=== PATIENT | male | born 1930 | race Caucasian/White ===

== ENCOUNTER 2016-07-25 17:04 | Inpatient (IN) ==
--- NOTE | 2016-07-25 17:51 | Emergency Department Note ---
Disposition Clinical Impression: Bronchitis, Community acquired pneumonia Dyspnea Qualifiers: Dyspnea type: dyspnea on exertion Qualified Code(s): R06.09 - Other forms of dyspnea Disposition: Admitted As Inpatient Condition: Fair Time of Disposition: 19:00 SOB HPI - General Chief Complaint: ED General Medical Stated Complaint: URMILA, weakness Time Seen by Provider: 07/25/16 17:37 Source: patient Limitations: no limitations Nursing Notes Reviewed: Yes Vital Signs Reviewed: Yes - History of Present Illness Patient is an 85-year-old male who presents to [facility] ED with a chief complaint of worsening shortness of breath since 07/15/2016. Patient states it has been gradually getting worse with exertion over the last few days. Past medical history significant for non-small cell lung cancer for which he has had radiation, COPD. Denies any cardiac history. Patient states he has had a productive cough and congestion worsening since . Family states he also had an episode where he was dizzy sitting on the toilet and had a syncopal episode earlier today. Pt Subjective Complaint: shortness of breath - Related Data Home Medications Medication Instructions Recorded Confirmed Aspirin 81 mg PO DAILY 04/04/15 07/25/16 Losartan [Cozaar] 50 mg PO DAILY 04/04/15 07/25/16 Metformin HCl [Glucophage Xr] 500 mg PO TID 04/04/15 07/25/16 Simvastatin [Zocor] 20 mg PO HS 04/04/15 07/25/16 Allergies Allergy/AdvReac Type Severity Reaction Status Date / Time atorvastatin [From Lipitor] Allergy Severe Shakiness Verified 07/25/16 22:25 All systems ED: reviewed and negative except as stated. Past Medical History - Past Medical History Attestation: Yes The following information was validated with the patient. Source: patient Medical history: Reports: diabetes, hyperlipidemia Psychiatric history: Reports: no psych history - Social History Smoking Status: Former smoker Smokeless Tobacco Status: No Alcohol use: Reports: none Drug use: Reports: none Physical Exam - General Limitations: no limitations General appearance: alert, in no apparent distress, cachectic - Head Head exam: atraumatic, normocephalic, normal inspection - Eye Eye exam: Present: normal appearance, PERRL, EOMI - ENT ENT exam: normal exam, normal oropharynx, mucous membranes moist - Neck Neck exam: Present: normal inspection, full ROM, trachea midline - Chest Chest inspection: Present: normal inspection, symmetric chest wall rise - Respiratory Respiratory exam: Present: normal lung sounds bilaterally - Cardiovascular Cardiovascular exam: Present: normal rhythm, tachycardia - Abdominal Exam Abdominal exam: Present: soft, Non-Tender. Absent: tenderness, distention, guarding, rebound, rigidity - Extremities Exam Extremities exam: Present: normal inspection, full ROM. Absent: tenderness, pedal edema - Back Exam Back exam: Present: normal inspection, full ROM. Absent: tenderness - Neurological Exam Neurological exam: Present: alert, oriented X3 - Psychiatric Psychiatric exam: Present: normal affect, normal mood - Skin Skin exam: Present: warm, dry, intact, normal color Course Course Narrative: Patient seen and examined. Difficulty breathing worsening since [place]. Patient has a pacemaker in place otherwise no other cardiac history. cardiopulmonary workup initiated. He has clear breath sounds bilaterally. Concern for possible pulmonary embolus as patient is tachycardic and had a syncopal episode today. CTA of the chest also ordered. - Reevaluation(s) Reevaluation #1: Patient signed out to oncoming resident Dr. Abarca at 19:00. Please see his note for further documentation. Time: 19:00 Vital Signs Temperature 97.6 F 07/25/16 17:13 Pulse Rate 102 07/25/16 17:13 Respiratory Rate 20 07/25/16 17:13 Blood Pressure 98/57 07/25/16 17:13 O2 Sat by Pulse Oximetry 95 07/25/16 17:13 Temperature 97.7 F 07/27/16 15:57 Pulse Rate 105 07/27/16 15:57 Respiratory Rate 18 07/27/16 16:03 Blood Pressure 127/63 07/27/16 16:03 O2 Sat by Pulse Oximetry 97 07/27/16 16:03 Oxygen Delivery Oxygen Delivery Room Air Shortness of Breath/Dyspnea - Medical Records Medical records reviewed: Yes I reviewed the patient's medical records. - Lab Data Lab results reviewed: Yes I reviewed the patient's lab results. Result diagrams: 07/27/16 05:48 07/27/16 05:48 Lab Results 07/25/16 07/25/16 07/25/16 Range/Units 18:10 18:10 18:10 WBC 27.9 H (4.3-11.1) K/mcL RBC 4.51 (4.19-5.50) M/mcL Hgb 12.8 L (12.9-16.9) g/dL Hct 37.7 (37.5-50.1) % MCV 83.6 (83.0-100.0) fL MCH 28.4 (28.0-33.3) pg MCHC 34.0 (31.6-35.5) g/dL RDW 13.9 (11.5-14.5) % Plt Count 429 H (140-400) K/mcL MPV 9.2 L (9.4-12.4) fL Immature Gran % 1.3 (0-4) % Seg Neutrophils % 89.9 % Lymphocytes % 3.1 % Monocytes % 5.5 % Eosinophils % 0.0 % Basophils % 0.2 % Neutrophils # 25.1 H (1.6-8.9) K/mcL Lymphocytes # 0.9 (0.6-4.6) K/mcL Monocytes # 1.5 H (0.0-1.3) K/mcL Eosinophils # 0.0 (0.0-0.6) K/mcL Basophils # 0.1 (0.0-0.2) K/mcL Platelet Estimate Normal (Normal) PT (9.4-12.1) Seconds INR APTT (26.0-36.0) Seconds Sodium 136 (136-145) mEq/L Potassium 4.3 (3.5-4.5) mEq/L Chloride 100 (98-109) mEq/L Carbon Dioxide 24 (19-29) mEq/L BUN 16 (8-26) mg/dL Creatinine 1.23 (0.72-1.25) mg/dL Est GFR ( Amer) > 60 (> 60) Est GFR (Non-Af Amer) 56 L (> 60) BUN/Creatinine Ratio 13 (6-26) Glucose 205 H (70-99) mg/dL Calculated Osmolality 289 (280-300) Lactic Acid (0.5-2.2) mmol/L Calcium 9.8 (8.6-10.8) mg/dL Phosphorus (2.3-4.7) mg/dL Magnesium (1.6-2.6) mg/dL Troponin I 0.01 (0-0.03) ng/mL B-Natriuretic Peptide (0-100) pg/mL Urine Color (Yellow) Urine Clarity (Clear) Urine pH (5.0-8.0) pH Units Ur Specific [place] (1.010-1.025) Urine Protein (Neg-Trace) mg/dL Urine Glucose (UA) (Normal) mg/dL Urine Ketones (Negative) mg/dL Urine Blood (Negative) Urine Nitrite (Negative) Urine Bilirubin (Negative) Urine Urobilinogen (Normal) mg/dL Ur Leukocyte Esterase (Negative) Urine Microscopic RBC (0-3) per hpf Urine Microscopic WBC (0-3) per hpf Ur Squamous Epith Cells (None-Few) per lpf Urine Bacteria (None-Few) per hpf Hyaline Casts (None-Few) per lpf Ur Culture Indicated? (NO) 07/25/16 07/25/16 07/25/16 Range/Units 18:10 20:23 22:06 WBC (4.3-11.1) K/mcL RBC (4.19-5.50) M/mcL Hgb (12.9-16.9) g/dL Hct (37.5-50.1) % MCV (83.0-100.0) fL MCH (28.0-33.3) pg MCHC (31.6-35.5) g/dL RDW (11.5-14.5) % Plt Count (140-400) K/mcL MPV (9.4-12.4) fL Immature Gran % (0-4) % Seg Neutrophils % % Lymphocytes % % Monocytes % % Eosinophils % % Basophils % % Neutrophils # (1.6-8.9) K/mcL Lymphocytes # (0.6-4.6) K/mcL Monocytes # (0.0-1.3) K/mcL Eosinophils # (0.0-0.6) K/mcL Basophils # (0.0-0.2) K/mcL Platelet Estimate (Normal) PT 13.3 H (9.4-12.1) Seconds INR 1.2 APTT 30.2 (26.0-36.0) Seconds Sodium (136-145) mEq/L Potassium (3.5-4.5) mEq/L Chloride (98-109) mEq/L Carbon Dioxide (19-29) mEq/L BUN (8-26) mg/dL Creatinine (0.72-1.25) mg/dL Est GFR ( Amer) (> 60) Est GFR (Non-Af Amer) (> 60) BUN/Creatinine Ratio (6-26) Glucose (70-99) mg/dL Calculated Osmolality (280-300) Lactic Acid (0.5-2.2) mmol/L Calcium (8.6-10.8) mg/dL Phosphorus (2.3-4.7) mg/dL Magnesium (1.6-2.6) mg/dL Troponin I (0-0.03) ng/mL B-Natriuretic Peptide 158 H (0-100) pg/mL Urine Color Yellow (Yellow) Urine Clarity Clear (Clear) Urine pH 7.5 (5.0-8.0) pH Units Ur Specific [place] 1.028 H (1.010-1.025) Urine Protein 30 H (Neg-Trace) mg/dL Urine Glucose (UA) Normal (Normal) mg/dL Urine Ketones 40 H (Negative) mg/dL Urine Blood Negative (Negative) Urine Nitrite Negative (Negative) Urine Bilirubin Small H (Negative) Urine Urobilinogen Normal (Normal) mg/dL Ur Leukocyte Esterase Trace H (Negative) Urine Microscopic RBC 3-5 H (0-3) per hpf Urine Microscopic WBC 5-15 H (0-3) per hpf Ur Squamous Epith Cells Many H (None-Few) per lpf Urine Bacteria None Seen (None-Few) per hpf Hyaline Casts None Seen (None-Few) per lpf Ur Culture Indicated? YES A (NO) 07/25/16 07/25/16 Range/Units 22:06 22:06 WBC (4.3-11.1) K/mcL RBC (4.19-5.50) M/mcL Hgb (12.9-16.9) g/dL Hct (37.5-50.1) % MCV (83.0-100.0) fL MCH (28.0-33.3) pg MCHC (31.6-35.5) g/dL RDW (11.5-14.5) % Plt Count (140-400) K/mcL MPV (9.4-12.4) fL Immature Gran % (0-4) % Seg Neutrophils % % Lymphocytes % % Monocytes % % Eosinophils % % Basophils % % Neutrophils # (1.6-8.9) K/mcL Lymphocytes # (0.6-4.6) K/mcL Monocytes # (0.0-1.3) K/mcL Eosinophils # (0.0-0.6) K/mcL Basophils # (0.0-0.2) K/mcL Platelet Estimate (Normal) PT (9.4-12.1) Seconds INR APTT (26.0-36.0) Seconds Sodium (136-145) mEq/L Potassium (3.5-4.5) mEq/L Chloride (98-109) mEq/L Carbon Dioxide (19-29) mEq/L BUN (8-26) mg/dL Creatinine (0.72-1.25) mg/dL Est GFR ( Amer) (> 60) Est GFR (Non-Af Amer) (> 60) BUN/Creatinine Ratio (6-26) Glucose (70-99) mg/dL Calculated Osmolality (280-300) Lactic Acid 1.8 (0.5-2.2) mmol/L Calcium (8.6-10.8) mg/dL Phosphorus 3.0 (2.3-4.7) mg/dL Magnesium 1.5 L (1.6-2.6) mg/dL Troponin I (0-0.03) ng/mL B-Natriuretic Peptide (0-100) pg/mL Urine Color (Yellow) Urine Clarity (Clear) Urine pH (5.0-8.0) pH Units Ur Specific [place] (1.010-1.025) Urine Protein (Neg-Trace) mg/dL Urine Glucose (UA) (Normal) mg/dL Urine Ketones (Negative) mg/dL Urine Blood (Negative) Urine Nitrite (Negative) Urine Bilirubin (Negative) Urine Urobilinogen (Normal) mg/dL Ur Leukocyte Esterase (Negative) Urine Microscopic RBC (0-3) per hpf Urine Microscopic WBC (0-3) per hpf Ur Squamous Epith Cells (None-Few) per lpf Urine Bacteria (None-Few) per hpf Hyaline Casts (None-Few) per lpf Ur Culture Indicated? (NO) - Radiology Data Radiology results reviewed: Yes I reviewed the patient's radiology results. - EKG Data EKG attestation: Yes I reviewed and interpreted this EKG. EKG results narrative: EKG done at 1804 shows atrial and ventricular paced rhythm with a rate of [address] elevation or depression noted. Attestation Statement - Attestation Attestation: I examined this patient and my medical decision-making was reviewed with the Resident Physician. I agree with the documented findings, disposition and treatment plan as described. Pt checked out to Dr. Solomon at change of shift.
[2016-07-25 18:19] LABS: Basophils # 0.1 K/mcL (0.0-0.2); Basophils % 0.2 %; Hematocrit 37.7 % (37.5-50.1); Hemoglobin 12.8 g/dL (12.9-16.9); Immature Granulocytes % 1.3 % (0-4); Lymphocytes # 0.9 K/mcL (0.6-4.6); Lymphocytes % 3.1 %; Mean Corpuscular Hemoglobin 28.4 pg (28.0-33.3); Mean Corpuscular Volume 83.6 fL (83.0-100.0); Mean Platelet Volume 9.2 fL (9.4-12.4); Monocytes # 1.5 K/mcL (0.0-1.3); Monocytes % 5.5 %; Neutrophils # 25.1 K/mcL (1.6-8.9); Platelet Count 429 K/mcL (140-400); Red Blood Count 4.51 M/mcL (4.19-5.50); Red Cell Distribution Width 13.9 % (11.5-14.5); Segmented Neutrophils % 89.9 %
[2016-07-25 18:29] LABS: BUN/Creatinine Ratio 13 (6-26); Blood Urea Nitrogen 16 mg/dL (8-26); Calcium 9.8 mg/dL (8.6-10.8); Carbon Dioxide 24 mEq/L (19-29); Chloride 100 mEq/L (98-109); Glucose 205 mg/dL (70-99); Osmolality,Calculated 289 (280-300); Potassium 4.3 mEq/L (3.5-4.5); Sodium 136 mEq/L (136-145); eGFR For African Americans > 60 (> 60); eGFR For Non-African Americans 56 (> 60)
[2016-07-25 18:38] LABS: Platelet Estimate Normal (Normal)
[2016-07-25] MEDS ORDERED: Azithromycin 500 MG in D5% in Water 250 ML IVPB ONE (21:36)
[2016-07-25] MEDS ORDERED: 0.9 % Sodium Chloride 1,000 ML IVC SCH (21:45)
--- NOTE | 2016-07-25 21:50 | Emergency Department Note ---
Disposition Clinical Impression: Bronchitis, Community acquired pneumonia Dyspnea Qualifiers: Dyspnea type: dyspnea on exertion Qualified Code(s): R06.09 - Other forms of dyspnea Disposition: Admitted As Inpatient Condition: Fair Forms: ED Satisfaction Letter SOB HPI - General Chief Complaint: ED General Medical Stated Complaint: URMILA, weakness Time Seen by Provider: 07/25/16 17:37 Source: patient Limitations: no limitations Nursing Notes Reviewed: Yes Vital Signs Reviewed: Yes - Related Data Home Medications Medication Instructions Recorded Confirmed Aspirin 81 mg PO DAILY 04/04/15 07/05/16 Losartan [Cozaar] 50 mg PO DAILY 04/04/15 07/05/16 Metformin HCl [Glucophage Xr] 500 mg PO TID 04/04/15 07/05/16 Simvastatin [Zocor] 20 mg PO HS 04/04/15 07/05/16 Previous Rx's Medication Instructions Recorded Levofloxacin [Levaquin] 750 mg PO DAILY #7 tablet 07/05/16 Allergies Allergy/AdvReac Type Severity Reaction Status Date / Time atorvastatin [From Lipitor] Allergy Severe Wheezing Verified 07/05/16 11:08 Past Medical History - Past Medical History Medical history: Reports: diabetes, hyperlipidemia Psychiatric history: Reports: no psych history - Social History Smoking Status: Former smoker Smokeless Tobacco Status: No Alcohol use: Reports: none Drug use: Reports: none Physical Exam - General Limitations: no limitations General appearance: alert, in no apparent distress, cachectic Course Course Narrative: This patient was signed out at shift change from Dr. Diaz and Dr. Jordan. Please refer to their notes for complete details of history and physical examination. At shift change patient is awaiting results of the CTA of the chest. Patient is an 85-year-old male with a remote history of lung cancer treated with radiation over a year ago. He presents with a complaint of some increasing shortness of breath and cough over the past few weeks. No fever. Some mild intermittent pleuritic chest pain. On examination patient is a cachectic elderly male in no acute distress. He is alert and oriented 3. There is no cyanosis or diaphoresis. Sounds are decreased but equal bilaterally. Heart regular rate and rhythm. Abdomen soft and nontender with normal bowel sounds. No pedal edema. Labs reviewed. WBC [address] of the chest showed no findings of pulmonary embolism. There was some patchy bronchial wall thickening in the lower lobes with bronchial secretions, especially on the left, suggesting bronchitis. There were new nodular opacities in the lower lobes likely infectious or inflammatory. The right upper lobe suprahilar mass was unchanged from prior study. The hospitalist, Dr. Aguayo, was consulted and accepted admission of the patient. She was concerned about possible sepsis in this patient so additional sepsis workup was added prior to admission. - Consultations Consultation #1: Discussed the patient with the hospitalist, Dr. Aguayo, and she accepted patient for admission to the medical service. Time: 21:40 Vital Signs Temperature 97.6 F 07/25/16 17:13 Pulse Rate 102 07/25/16 17:13 Respiratory Rate 20 07/25/16 17:13 Blood Pressure 98/57 07/25/16 17:13 O2 Sat by Pulse Oximetry 95 07/25/16 17:13 Temperature 97.6 F 07/25/16 17:13 Pulse Rate 93 07/25/16 20:36 Respiratory Rate 16 07/25/16 20:36 Blood Pressure 148/70 07/25/16 20:36 O2 Sat by Pulse Oximetry 95 07/25/16 20:37 Oxygen Delivery Oxygen Delivery Nasal Cannula Shortness of Breath/Dyspnea - Medical Records Medical records reviewed: Yes I reviewed the patient's medical records. - Lab Data Lab results reviewed: Yes I reviewed the patient's lab results. Result diagrams: 07/25/16 18:10 07/25/16 18:10 Lab Results 07/25/16 07/25/16 07/25/16 Range/Units 18:10 18:10 18:10 WBC 27.9 H (4.3-11.1) K/mcL RBC 4.51 (4.19-5.50) M/mcL Hgb 12.8 L (12.9-16.9) g/dL Hct 37.7 (37.5-50.1) % MCV 83.6 (83.0-100.0) fL MCH 28.4 (28.0-33.3) pg MCHC 34.0 (31.6-35.5) g/dL RDW 13.9 (11.5-14.5) % Plt Count 429 H (140-400) K/mcL MPV 9.2 L (9.4-12.4) fL Immature Gran % 1.3 (0-4) % Seg Neutrophils % 89.9 % Lymphocytes % 3.1 % Monocytes % 5.5 % Eosinophils % 0.0 % Basophils % 0.2 % Neutrophils # 25.1 H (1.6-8.9) K/mcL Lymphocytes # 0.9 (0.6-4.6) K/mcL Monocytes # 1.5 H (0.0-1.3) K/mcL Eosinophils # 0.0 (0.0-0.6) K/mcL Basophils # 0.1 (0.0-0.2) K/mcL Platelet Estimate Normal (Normal) Sodium 136 (136-145) mEq/L Potassium 4.3 (3.5-4.5) mEq/L Chloride 100 (98-109) mEq/L Carbon Dioxide 24 (19-29) mEq/L BUN 16 (8-26) mg/dL Creatinine 1.23 (0.72-1.25) mg/dL Est GFR ( Amer) > 60 (> 60) Est GFR (Non-Af Amer) 56 L (> 60) BUN/Creatinine Ratio 13 (6-26) Glucose 205 H (70-99) mg/dL Calculated Osmolality 289 (280-300) Calcium 9.8 (8.6-10.8) mg/dL Troponin I 0.01 (0-0.03) ng/mL B-Natriuretic Peptide (0-100) pg/mL 07/25/16 Range/Units 18:10 WBC (4.3-11.1) K/mcL RBC (4.19-5.50) M/mcL Hgb (12.9-16.9) g/dL Hct (37.5-50.1) % MCV (83.0-100.0) fL MCH (28.0-33.3) pg MCHC (31.6-35.5) g/dL RDW (11.5-14.5) % Plt Count (140-400) K/mcL MPV (9.4-12.4) fL Immature Gran % (0-4) % Seg Neutrophils % % Lymphocytes % % Monocytes % % Eosinophils % % Basophils % % Neutrophils # (1.6-8.9) K/mcL Lymphocytes # (0.6-4.6) K/mcL Monocytes # (0.0-1.3) K/mcL Eosinophils # (0.0-0.6) K/mcL Basophils # (0.0-0.2) K/mcL Platelet Estimate (Normal) Sodium (136-145) mEq/L Potassium (3.5-4.5) mEq/L Chloride (98-109) mEq/L Carbon Dioxide (19-29) mEq/L BUN (8-26) mg/dL Creatinine (0.72-1.25) mg/dL Est GFR ( Amer) (> 60) Est GFR (Non-Af Amer) (> 60) BUN/Creatinine Ratio (6-26) Glucose (70-99) mg/dL Calculated Osmolality (280-300) Calcium (8.6-10.8) mg/dL Troponin I (0-0.03) ng/mL B-Natriuretic Peptide 158 H (0-100) pg/mL - Radiology Data Radiology results reviewed: Yes I reviewed the patient's radiology results. Chest X-Ray 07/25/16 17:49 IMPRESSION: 1. No acute cardiopulmonary process. 2. Unchanged suprahilar right upper lobe mass. D/ / Venkat Lr MD / Venkat Lr MD Interpreting Provider: Venkat Lr MD Chest CTA 07/25/16 18:04 IMPRESSION: 1. No findings of pulmonary embolism. 2. Patchy minimal to mild bronchial wall thickening in the lower lobes with associated bronchial secretions especially on the left, suggesting bronchitis. 3. New nodular opacities in the lower lobes as above, likely infectious or inflammatory given the interval between studies. Recommend attention on follow-up imaging. 4. Decreased size and solid component of previously seen prior nodules in the right middle lobe, suggesting a resolving infectious and/or inflammatory process. 5. Unchanged suprahilar right upper lobe mass and other bilateral nodules as described on the prior study. 6. Mild centrilobular and minimal paraseptal emphysema. 7. Normal heart size with mild coronary atherosclerotic calcifications and mild right ventricular hypertrophy. D/ / Venkat Lr MD / Venkat Lr MD Interpreting Provider: Venkat Lr MD
[2016-07-25 22:16] LABS: Bilirubin,Urine Small (Negative); Blood,Urine Negative (Negative); Clarity,Urine Clear (Clear); Color,Urine Yellow (Yellow); Glucose,Urine (UA) Normal (Normal); Ketones,Urine 40 mg/dL (Negative); Leukocyte Esterase,Urine Trace (Negative); Nitrite,Urine Negative (Negative); PH,Urine 7.5 pH Units (5.0-8.0); Protein,Urine 30 mg/dL (Neg-Trace); Specific Gravity,Urine 1.028 (1.010-1.025); Urobilinogen,Urine Normal (Normal)
[2016-07-25 22:18] LABS: Bacteria,Urine None Seen per hpf (None-Few); Hyaline Casts,Urine None Seen per lpf (None-Few); Squamous Epithelial Cell,Urine Many per lpf (None-Few)
[2016-07-25] MEDS ORDERED: Ipratropium/Albuterol Neb 3 ML IH PRN (22:18)
[2016-07-25] MEDS ORDERED: *HR* Morphine 2 MG/ML SYRINGE IV PRN (22:18)
[2016-07-25 22:23] LABS: INR 1.2; Prothrombin Time 13.3 Seconds (9.4-12.1)
[2016-07-25 22:25] LABS: Activated Partial Thrombo Time 30.2 Seconds (26.0-36.0)
[2016-07-25] MEDS ORDERED: D5% in Water 1,000 ML IV PRN (22:25)
[2016-07-25] MEDS ORDERED: Naloxone 0.4 MG/ML INJ IVP PRN (22:25)
[2016-07-25] MEDS ORDERED: Acetaminophen 325 MG TABLET PO PRN (22:25)
[2016-07-25] MEDS ORDERED: Ondansetron 4 MG/2 ML VIAL IVP PRN (22:25)
[2016-07-25] MEDS ORDERED: *HR* Dextrose 50 % in Water (Syg) 50 ML SYRINGE IVP PRN (22:25)
[2016-07-25] MEDS ORDERED: Dextrose Gel 15 GM PO PRN ×2 (22:25)
[2016-07-25 22:29] LABS: Magnesium 1.5 mg/dL (1.6-2.6)
--- NOTE | 2016-07-25 22:36 | Internal Med History&Physical ---
Date of Encounter: 07/25/16 Time of Encounter: 22:30 Assessment and Plan (1) Sepsis Current visit: Yes Status: Acute Acute mild COPD exacerbation due to Sepsis secondary to acute bacterial bronchitis/community-acquired pneumonia Continue Rocephin and azithromycin Continue oxygen, DuoNeb nebs and Solu-Medrol Blood cultures Check a respiratory viral panel Check a lactic acid Qualifiers: Sepsis type: sepsis due to unspecified organism Qualified Code(s): A41.9 - Sepsis, unspecified organism (2) Diabetes Current visit: Yes Status: Acute Use insulin sliding scale and continue metformin Qualifiers: Diabetes mellitus type: type 2 Diabetes mellitus complication status: without complication 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 The patient will be admitted as inpatient, he is expected to stay more than 2 maintenance. He is a DNR CC arrest DNI, time spent on this admission 40 minutes. He is high risk due to sepsis Internal Medicine - H&P: HPI Chief complaint: Shortness of breath Admitted From: Emergency Dept Plans for Post Hospital Care: Home History of present illness: Mr. Corado is a 85 year old male with past medical history of COPD not oxygen dependent, remote history of tobacco use. Comes emergency room complaining of worsening shortness of breath has been getting worse since July 15. He did not complain of being congested and having cough with yellowish phlegm. His family members said that he sleeps alone but most of them visiting him constantly and all of them had had a respiratory infection within the last few days. He denies any fever, but his white blood cell count is 27.9 he was tachycardic with a heart rate 102 and hypotensive with a blood pressure of 98/ 57. CT angios the chest was performed and did not show any pulmonary emboli but showed possible bronchitis in a few opacities in both lower lobes that could be from an infectious origin. There is a right upper lobe mass that has been stable/unchanged from the prior imaging studies. The patient was given Rocephin and azithromycin at the emergency room. He also had a syncopal episode as he was very weak earlier today while being on the toilet. He was feeling dizzy at that time and appears very dehydrated at the moment. Past Med Surg Social Fam HX - Past Medical History Medical history: COPD (Not oxygen dependent), diabetes (Not insulin-dependent), hyperlipidemia, hypertension, other (Non-small cell carcinoma status post radiation in 2014, gastric ulcers status post surgery.) Psychiatric history: no psych history - Past Surgical History Surgical History: cholecystectomy, other (Pacemaker, gastric ulcer surgery, cholecystectomy) - Social History Smoking Status: Former smoker (Quit 40 years ago) Smokeless Tobacco Status: No Alcohol use: none Drug use: none - Additional Family History Additional family history: Father with a myocardial infarction and mother with diabetes Internal Medicine - H&P: Meds Aspirin 81 mg PO DAILY 04/04/15 [History] Losartan [Cozaar] 50 mg PO DAILY 04/04/15 [History] Metformin HCl [Glucophage Xr] 500 mg PO TID 04/04/15 [History] Simvastatin [Zocor] 20 mg PO HS 04/04/15 [History] Allergies atorvastatin [From Lipitor] Allergy (Severe, Verified 07/25/16 22:25) Shakiness All Systems PM: A 10-system review of systems was performed and is negative for pertinent findings except as documented above in the HPI. Review of systems: Feels very weak, denies any chest pain, no abdominal pain, no dysuria. Other systems out of the 10 review negative - Constitutional Vitals: Temp Pulse Resp BP Pulse Ox 97.6 F 96 16 140/83 97 07/25/16 17:13 07/25/16 21:57 07/25/16 21:57 07/25/16 21:57 07/25/16 21:57 General appearance: Present: A&O X 3, underweight - Head Head exam: Present: atraumatic, normocephalic - Eye Eye exam: Present: PERRL, conjuntiva pink, sclera anicteric Pupils: Present: PERRL - Neck Neck exam general surgery: Present: supple, trachea midline. Absent: lymphadenopathy - Respiratory Respiratory exam: Present: decreased breath sounds (Very diminished breath sounds bilaterally with diffuse crackles and mild wheezing), CTAB. Absent: accessory muscle use, rales, rhonchi, wheezes - Cardiovascular Cardiovascular exam: Present: RRR, +S1, +S2. Absent: diastolic murmur, gallop, rubs, systolic murmur - GI/Abdominal GI/Abdominal exam: Present: normal bowel sounds, soft, no peritoneal signs. Absent: distended, tenderness - Extremities Exam Extremities exam: Present: warm, radial pulses palpable and symetrical. Absent : calf tenderness, cyanotic, pedal edema - Neurological Exam Neurological exam: Present: CN II-XII intact, oriented X3, no focal deficits. Absent: pronater drift, facial droop, speech deficit - Skin Skin exam: Present: dry, intact Internal Med - H&P Results - Labs CBC & Chem 7: 07/25/16 18:10 07/25/16 18:10
[2016-07-25] MEDS: Ipratropium/Albuterol Neb 3 ML IH SCH (23:33)
[2016-07-25] MEDS: 0.9 % Sodium Chloride 1,000 ML IVC SCH (23:50)
[2016-07-26] MEDS: methylPREDNISolone 125 MG/2 ML VIAL IV SCH ×3 (00:48→21:56)
[2016-07-26] MEDS: *HR* Heparin 5,000 UNIT/ML VIAL SQ SCH ×4 (00:49→23:44)
[2016-07-26 01:53] LABS: Hemoglobin 12.1 g/dL (12.9-16.9); Mean Corpuscular HGB Conc 33.6 g/dL (31.6-35.5); Mean Corpuscular Hemoglobin 28.3 pg (28.0-33.3); Mean Corpuscular Volume 84.1 fL (83.0-100.0); Mean Platelet Volume 9.4 fL (9.4-12.4); Platelet Count 391 K/mcL (140-400); Red Blood Count 4.28 M/mcL (4.19-5.50)
[2016-07-26 02:05] LABS: BUN/Creatinine Ratio 14 (6-26); Blood Urea Nitrogen 16 mg/dL (8-26); Calcium 8.6 mg/dL (8.6-10.8); Carbon Dioxide 24 mEq/L (19-29); Chloride 102 mEq/L (98-109); Glucose 267 mg/dL (70-99); Osmolality,Calculated 289 (280-300); Potassium 3.8 mEq/L (3.5-4.5); Sodium 134 mEq/L (136-145); eGFR For African Americans > 60 (> 60); eGFR For Non-African Americans > 60 (> 60)
[2016-07-26] MEDS: Ipratropium/Albuterol Neb 3 ML IH SCH ×4 (04:54→20:27)
[2016-07-26] MEDS: Insulin LISPRO 300 UNITS/3 ML VIAL SQ SCH ×4 (08:22→21:57)
[2016-07-26] MEDS: Aspirin 81 MG TAB.CHEW PO SCH (08:23)
[2016-07-26] MEDS: 0.9 % Sodium Chloride 1,000 ML IVC SCH (08:25)
[2016-07-26] MEDS: *HR* Metformin 500 MG TABLET PO SCH ×3 (08:30→21:57)
[2016-07-26] MEDS ORDERED: Azithromycin 250 MG TABLET PO SCH (09:00)
[2016-07-26] MEDS ORDERED: 3% Sodium Chloride Inhalation 4 ML VIAL.NEB IH ONE (09:54)
[2016-07-26] MEDS ORDERED: Piperacillin/Tazobactam 3.375 GM in D5% in Water (Mini-Bag+) 100 ML IVPB SCH (09:57)
[2016-07-26] MEDS ORDERED: Vancomycin 1,000 MG in D5% in Water 250 ML IVPB ONE (10:00)
--- NOTE | 2016-07-26 10:07 | Internal Med Progress Note ---
<Klaudia Montemayor - Last Filed: 07/26/16 15:15> Date of Encounter: 07/26/16 Time of Encounter: 09:30 - Assessment and plan (1) Sepsis Current Visit: Yes Status: Acute Assessment and plan: Evidenced by criteria met on admission with leukocytosis, tachycardia, suspected pulmonary source. Suspect 2* to healthcare associated pneumonia. Cont broad spectrum empiric antibiotics vancomycin, zosyn, levaquin pending culture return for deescalation. Qualifiers: Sepsis type: sepsis due to unspecified organism Qualified Code(s): A41.9 - Sepsis, unspecified organism (2) HCAP (healthcare-associated pneumonia) Current Visit: Yes Status: Acute Assessment and plan: He would fail outpatient levaquin therapy for pneumonia. Chest CT reviewed, concern for post-obstructive process. Appropriate for MRSA, anaerobic coverage per above. He was followed by Dr. Hammond for NSCLC, with interval progression of metabolic activity and nodule per PET CT, recommended for bronchoscopy. Had Office Visit with Clinic Scheduler Dr. Crespo on 07/05/16, had discussed R/B/ A to bronchoscopy and scheduled for the bronch in 2-3 weeks from that time. He may benefit from bronchoscopy for further characterization of infectious/ malignant process. Discussed with pulmonary team, appreciate their recs. (3) Non-small cell cancer of right lung Current Visit: No Status: Chronic Assessment and plan: Was followed by Dr. Hmamond. Had underwent SBRT May of 2014. Transitioned care to Dr. Jasmine. (4) Diabetes Current Visit: Yes Status: Acute Assessment and plan: On steroid therapy for suspected COPD exacerbation. Will increase coverage. Qualifiers: Diabetes mellitus type: type 2 Diabetes mellitus complication status: without complication Diabetes mellitus residential insulin use: without residential use Qualified Code(s): E11.9 - Type 2 diabetes mellitus without complications (5) Hypertension Current Visit: Yes Status: Acute Assessment and plan: Controlled, cont current regimen. Qualifiers: Hypertension type: essential hypertension Qualified Code(s): I10 - Essential (primary) hypertension (6) DVT prophylaxis Current Visit: Yes Status: Acute Assessment and plan: Heparin 5000 U SC TID - Subjective Interval history: Patient seen/eval at bedside. History Non-small cell lung cancer May 2014, treated with SBRT. Interval PET scan 04/27/16 would show hypermetabolic activity.. He would be given levaquin as an outpatient and failed to improve. He would be recommended for repeat bronchoscopy for further delineation of lung mass. Had Office Visit with Clinic Scheduler Dr. Crespo on 07/05/16, had discussed R/B/ A to bronchoscopy and scheduled for the bronch in 2-3 weeks from that time. He endorses pleuritic discomfort with cough, productive with greenish tinge. Also subjective chills with night sweats. He is able to affirm general past medical history with prompting, but his recollection of specific regimen and sequence/timeline is vague. Denies abdominal pain, nvd, LUTS. - Constitutional Vitals: Temp Pulse Resp BP Pulse Ox 97.6 F 78 16 113/59 100 07/26/16 07:19 07/26/16 07:19 07/26/16 07:19 07/26/16 07:19 07/26/16 07:19 General appearance: Present: A&O X 3, underweight - Head Head exam: Present: atraumatic, normocephalic - Eye Eye exam: Present: EOMI, sclera anicteric - ENT ENT exam: Present: mucous membranes moist - Neck Neck exam general surgery: Present: supple, trachea midline. Absent: lymphadenopathy - Respiratory Respiratory exam: Present: rhonchi (scant ronchi, mild wheeze. No crackles) - Cardiovascular Cardiovascular exam: Present: +S1, +S2. Absent: JVD - GI/Abdominal GI/Abdominal exam: Present: soft, no peritoneal signs. Absent: tenderness - Extremities Exam Extremities exam: Present: warm, radial pulses palpable and symetrical. Absent : pedal edema - Neurological Exam Neurological exam: Absent: facial droop, speech deficit Internal Medicine: Result - Labs CBC & Chem 7: 07/26/16 01:26 07/26/16 01:26 Labs: Short CBC 07/26/16 Range/Units 01:26 WBC 23.5 H (4.3-11.1) K/mcL Hgb 12.1 L (12.9-16.9) g/dL Hct 36.0 L (37.5-50.1) % Plt Count 391 (140-400) K/mcL BMP 07/26/16 01:26 Sodium 134 L Potassium 3.8 Chloride 102 Carbon Dioxide 24 BUN 16 Creatinine 1.16 Glucose 267 H Calcium 8.6 - ABG Interpretation ABG results: PT/INR, D-dimer PT 13.3 Seconds (9.4-12.1) H 07/25/16 22:06 Consult Discharge Plan - Plan Referrals: Kev Mccloud Jr, MD [Primary Care Provider] - <Sergo Jay - Last Filed: 07/26/16 18:16> Date of Encounter: 07/26/16 - Constitutional Vitals: Temp Pulse Resp BP Pulse Ox 98 F 81 18 114/65 96 07/26/16 16:27 07/26/16 16:27 07/26/16 16:27 07/26/16 16:27 07/26/16 16:27 Internal Medicine: Result - Labs CBC & Chem 7: 07/26/16 01:26 07/26/16 01:26 Labs: Short CBC 07/26/16 Range/Units 01:26 WBC 23.5 H (4.3-11.1) K/mcL Hgb 12.1 L (12.9-16.9) g/dL Hct 36.0 L (37.5-50.1) % Plt Count 391 (140-400) K/mcL BMP 07/26/16 01:26 Sodium 134 L Potassium 3.8 Chloride 102 Carbon Dioxide 24 BUN 16 Creatinine 1.16 Glucose 267 H Calcium 8.6 - ABG Interpretation ABG results: PT/INR, D-dimer PT 13.3 Seconds (9.4-12.1) H 07/25/16 22:06 - Attending Attestation I examined this patient and my medical decision-making was reviewed with the [employer] MACHINE OPERATOR/PA/Advanced Practice Nurse/Resident Physician. I agree with the documented findings, disposition and treatment plan as described except to the extent set forth below. Pulmonary evaluation, possible bronchoscopy.
[2016-07-26] MEDS: Levofloxacin 500 MG/100 ML 500 MG/100 ML BAG IVPB SCH (12:00)
--- NOTE | 2016-07-26 13:58 | Electrocardiograph Report ---
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
[2016-07-26 16:45] LABS: Adenovirus Not Detected (Not Detect); Bordetella Pertussis Not Detected (Not Detect); Chlamydophila pneumoniae Not Detected (Not Detect); Coronavirus 229E Not Detected (Not Detect); Coronavirus HKU1 Not Detected (Not Detect); Coronavirus NL63 Not Detected (Not Detect); Coronavirus OC43 Not Detected (Not Detect); Human Metapneumovirus Not Detected (Not Detect); Human Rhinovirus/Enterovirus Not Detected (Not Detect); Influenza A Subtype 2009 H1 Not Detected (Not Detect); Influenza A Untypeable Not Detected (Not Detect); Influenza B Not Detected (Not Detect); Mycoplasma pneumoniae Not Detected (Not Detect); Parainfluenza Virus 1 Not Detected (Not Detect); Parainfluenza Virus 2 Not Detected (Not Detect); Parainfluenza Virus 3 Not Detected (Not Detect); Parainfluenza Virus 4 Not Detected (Not Detect); Respiratory Syncytial Virus Not Detected (Not Detect)
[2016-07-26] MEDS: Piperacillin/Tazobactam 3.375 GM in D5% in Water (Mini-Bag+) 100 ML IVPB SCH ×2 (17:09→23:43)
--- NOTE | 2016-07-26 20:27 | Pulmonology Consult Note ---
<NaomieVenkat glynn - Last Filed: 07/26/16 20:23> Date of Encounter: 07/26/16 Time of Encounter: 13:00 Assessment and Plan (1) Non-small cell cancer of right lung Current Visit: Yes Status: Chronic Patient has previously undergone treatment via oncology with chemo and radiation. Was previously seen in the outpatient pulmonology clinic and was recommended to have bronchoscopy to determine if changes seen on imaging related to recurrence of cancer or scarring secondary to radiation. Procedure was planned for this week. Discussed with patient and he wishes to proceed with bronchoscopy at this time. Risks, benefits, and procedure were reviewed with the patient and family. Will plan for bronchoscopy tomorrow. NPO at midnight. History of Present Illness Consult date: 07/26/16 Requesting physician: Klaudia Montemayor Reason for consult: lung mass Chief complaint: Dyspnea History of present illness: Patient is an 85 year old male with history of lung cancer who presents with shortness of breath. Patient states his baseline shortness of breath got worse a few days ago and he also began to cough. He denies productive cough or hemoptysis. He denies fever, chills, chest pain. Past Med Surg Social Fam HX - Past Medical History Medical history: COPD, diabetes, hyperlipidemia, hypertension, other Psychiatric history: no psych history - Past Surgical History Surgical History: cholecystectomy, pacemaker - Social History Smoking Status: Former smoker Smokeless Tobacco Status: No Alcohol use: none Drug use: none Medications and Allergies Aspirin 81 mg PO DAILY 04/04/15 [History] Losartan [Cozaar] 50 mg PO DAILY 04/04/15 [History] Metformin HCl [Glucophage Xr] 500 mg PO TID 04/04/15 [History] Simvastatin [Zocor] 20 mg PO HS 04/04/15 [History] Allergies atorvastatin [From Lipitor] Allergy (Severe, Verified 07/25/16 22:25) Shakiness All Systems: A 10-system review of systems was performed and is negative for pertinent findings except as documented above in the HPI. - Constitutional Constitutional: no chills, no fever(s) - EENT Nose, mouth and throat: no throat swelling, no tongue swelling - Cardiovascular Cardiovascular: dyspnea, dyspnea on exertion, no chest pain, no edema, no irregular heart rhythm - Respiratory Respiratory: cough, dyspnea, excessive phlegm production, no hemoptysis, no dyspnea on exertion, no change in phlegm color, no pain with cough - Gastrointestinal Gastrointestinal: no abdominal pain, no nausea, no vomiting - Neurological Neurological: no confusion, no focal weakness Physical Examination Vital Signs: Vital Signs, Last 4 Hours Temp Pulse Resp BP Pulse Ox 07/26/16 16:27 98 F 81 18 114/65 96 General appearance: no acute distress ENT: oropharynx moist Effort: normal Auscultation: bilateral: diminished breath sounds Cardiovascular: regular rate and rhythm Gastrointestinal: normoactive bowel sounds, soft, non-tender, non-distended Extremities: no cyanosis, no edema, no clubbing normal mental status, non-focal exam Results - Laboratory Findings CBC and BMP: 07/26/16 01:26 07/26/16 01:26 PT/INR, D-dimer PT 13.3 Seconds (9.4-12.1) H 07/25/16 22:06 Abnormal lab findings: Abnormal lab results WBC 23.5 K/mcL (4.3-11.1) H 07/26/16 01:26 Hgb 12.1 g/dL (12.9-16.9) L 07/26/16 01:26 Hct 36.0 % (37.5-50.1) L 07/26/16 01:26 Neutrophils # 25.1 K/mcL (1.6-8.9) H 07/25/16 18:10 Monocytes # 1.5 K/mcL (0.0-1.3) H 07/25/16 18:10 PT 13.3 Seconds (9.4-12.1) H 07/25/16 22:06 Sodium 134 mEq/L (136-145) L 07/26/16 01:26 Glucose 267 mg/dL (70-99) H 07/26/16 01:26 POC Glucose 342 (58-89) H 07/26/16 16:31 Magnesium 1.5 mg/dL (1.6-2.6) L 07/25/16 22:06 B-Natriuretic Peptide 158 pg/mL (0-100) H 07/25/16 18:10 Ur Specific Rickreall 1.028 (1.010-1.025) H 07/25/16 20:23 Urine Protein 30 mg/dL (Neg-Trace) H 07/25/16 20:23 Urine Ketones 40 mg/dL (Negative) H 07/25/16 20:23 Urine Bilirubin Small (Negative) H 07/25/16 20:23 Ur Leukocyte Esterase Trace (Negative) H 07/25/16 20:23 Urine Microscopic RBC 3-5 per hpf (0-3) H 07/25/16 20:23 Urine Microscopic WBC 5-15 per hpf (0-3) H 07/25/16 20:23 Ur Squamous Epith Cells Many per lpf (None-Few) H 07/25/16 20:23 Ur Culture Indicated? YES (NO) A 07/25/16 20:23 - Clinical Findings Intake & Output: Intake & Output 07/26/16 07/26/16 07/26/16 07:59 15:59 23:59 Intake Total 0 / 0 1360 / 1360 480 / 480 Output Total 150 / 150 100 / 100 Balance -150 / -150 1260 / 1260 480 / 480 Weight 52.4 kg Consult Discharge Plan - Plan Referrals: Kev Mccloud Jr, MD [Primary Care Provider] - <Tree Crespo - Last Filed: 07/26/16 21:55> Date of Encounter: 07/26/16 All Systems: A 10-system review of systems was performed and is negative for pertinent findings except as documented above in the HPI. Physical Examination Vital Signs: Vital Signs, Last 4 Hours Resp Pulse Ox 07/26/16 20:28 18 96 Results - Laboratory Findings CBC and BMP: 07/26/16 01:26 07/26/16 01:26 PT/INR, D-dimer PT 13.3 Seconds (9.4-12.1) H 07/25/16 22:06 Abnormal lab findings: Abnormal lab results WBC 23.5 K/mcL (4.3-11.1) H 07/26/16 01:26 Hgb 12.1 g/dL (12.9-16.9) L 07/26/16 01:26 Hct 36.0 % (37.5-50.1) L 07/26/16 01:26 Neutrophils # 25.1 K/mcL (1.6-8.9) H 07/25/16 18:10 Monocytes # 1.5 K/mcL (0.0-1.3) H 07/25/16 18:10 PT 13.3 Seconds (9.4-12.1) H 07/25/16 22:06 Sodium 134 mEq/L (136-145) L 07/26/16 01:26 Glucose 267 mg/dL (70-99) H 07/26/16 01:26 POC Glucose 352 (58-89) H 07/26/16 20:10 Magnesium 1.5 mg/dL (1.6-2.6) L 07/25/16 22:06 B-Natriuretic Peptide 158 pg/mL (0-100) H 07/25/16 18:10 Ur Specific Rickreall 1.028 (1.010-1.025) H 07/25/16 20:23 Urine Protein 30 mg/dL (Neg-Trace) H 07/25/16 20:23 Urine Ketones 40 mg/dL (Negative) H 07/25/16 20:23 Urine Bilirubin Small (Negative) H 07/25/16 20:23 Ur Leukocyte Esterase Trace (Negative) H 07/25/16 20:23 Urine Microscopic RBC 3-5 per hpf (0-3) H 07/25/16 20:23 Urine Microscopic WBC 5-15 per hpf (0-3) H 07/25/16 20:23 Ur Squamous Epith Cells Many per lpf (None-Few) H 07/25/16 20:23 Ur Culture Indicated? YES (NO) A 07/25/16 20:23 - Clinical Findings Intake & Output: Intake & Output 07/26/16 07/26/16 07/26/16 07:59 15:59 23:59 Intake Total 0 / 0 1360 / 1360 480 / 480 Output Total 150 / 150 100 / 100 Balance -150 / -150 1260 / 1260 480 / 480 Weight 52.4 kg - Attending Attestation I examined this patient and my medical decision-making was reviewed with the HY[employer] JACK MECHANIC/PA/Advanced Practice Nurse/Resident Physician. I agree with the documented findings, disposition and treatment plan as described except to the extent set forth below. Patient seen and examined with the resident and all labs and images reviewed Patient is feeling better There was a plan to do bronchoscopy as outpatient, however due to his illness, he was hospitalized. Family wants bronch to be done as inpatient, which reasonable because patient at risk for complications and monitoring as inpatient is acceptable. Lung diminished breath sounds Patient has seen oncologist.Family and patient wants the procedure to be done. Thanks for the consult, will arrange bronchoscopy
[2016-07-26] MEDS ORDERED: Insulin LISPRO 300 UNITS/3 ML VIAL SQ SCH (21:00)
[2016-07-27] MEDS: 0.9 % Sodium Chloride 1,000 ML IVC SCH ×3 (01:24→17:07)
[2016-07-27] MEDS: Ipratropium/Albuterol Neb 3 ML IH SCH ×4 (03:53→22:29)
[2016-07-27 06:18] LABS: Basophils % 0.1 %; Hematocrit 30.2 % (37.5-50.1); Immature Granulocytes % 1.5 % (0-4); Lymphocytes # 0.5 K/mcL (0.6-4.6); Lymphocytes % 2.6 %; Mean Corpuscular HGB Conc 33.8 g/dL (31.6-35.5); Mean Corpuscular Hemoglobin 28.3 pg (28.0-33.3); Mean Corpuscular Volume 83.7 fL (83.0-100.0); Mean Platelet Volume 9.8 fL (9.4-12.4); Monocytes # 0.3 K/mcL (0.0-1.3); Monocytes % 1.6 %; Neutrophils # 17.7 K/mcL (1.6-8.9); Platelet Count 346 K/mcL (140-400); Red Blood Count 3.61 M/mcL (4.19-5.50); Segmented Neutrophils % 94.2 %
[2016-07-27 06:35] LABS: BUN/Creatinine Ratio 20 (6-26); Blood Urea Nitrogen 24 mg/dL (8-26); Calcium 7.9 mg/dL (8.6-10.8); Carbon Dioxide 18 mEq/L (19-29); Chloride 106 mEq/L (98-109); Glucose 357 mg/dL (70-99); Magnesium 1.6 mg/dL (1.6-2.6); Osmolality,Calculated 294 (280-300); Potassium 3.8 mEq/L (3.5-4.5); Sodium 133 mEq/L (136-145); eGFR For African Americans > 60 (> 60); eGFR For Non-African Americans 59 (> 60)
[2016-07-27 07:04] LABS: Hemoglobin 10.2 g/dL (12.9-16.9)
[2016-07-27] MEDS ORDERED: Vancomycin 750 MG in D5% in Water 250 ML IVPB SCH (09:00)
[2016-07-27] MEDS: *HR* Heparin 5,000 UNIT/ML VIAL SQ SCH ×2 (09:01→17:07)
[2016-07-27] MEDS: *HR* Metformin 500 MG TABLET PO SCH ×3 (09:01→21:50)
[2016-07-27] MEDS: methylPREDNISolone 125 MG/2 ML VIAL IV SCH ×2 (09:03→21:40)
[2016-07-27] MEDS: Piperacillin/Tazobactam 3.375 GM in D5% in Water (Mini-Bag+) 100 ML IVPB SCH ×2 (09:03→17:06)
[2016-07-27] MEDS: Insulin LISPRO 300 UNITS/3 ML VIAL SQ SCH ×4 (09:04→21:41)
--- NOTE | 2016-07-27 09:49 | Internal Med Progress Note ---
<Klaudia Montemayor - Last Filed: 07/27/16 16:36> Date of Encounter: 07/27/16 Time of Encounter: 09:15 - Assessment and plan (1) Sepsis Current Visit: Yes Status: Acute Assessment and plan: Evidenced by criteria met on admission with leukocytosis, tachycardia, suspected pulmonary source. Suspect 2* to healthcare associated pneumonia. Cont broad spectrum empiric antibiotics zosyn, levaquin. DC vancomycin. BC x 2 negative UAT negative BAL NGTD Qualifiers: Sepsis type: sepsis due to unspecified organism Qualified Code(s): A41.9 - Sepsis, unspecified organism (2) HCAP (healthcare-associated pneumonia) Current Visit: Yes Status: Acute Assessment and plan: He would fail outpatient levaquin therapy for pneumonia. Chest CT reviewed, concern for post-obstructive process. Underwent bronchoscopy 07/27/16. (3) Non-small cell cancer of right lung Current Visit: Yes Status: Chronic Assessment and plan: Was followed by Dr. Hammond. Had underwent SBRT May of 2014. Transitioned care to Dr. Jasmine. (4) Diabetes Current Visit: Yes Status: Acute Assessment and plan: On steroid therapy for suspected COPD exacerbation. Will increase coverage. Qualifiers: Diabetes mellitus type: type 2 Diabetes mellitus complication status: without complication Diabetes mellitus adjunct faculty for medical terminology insulin use: without adjunct faculty for medical terminology use Qualified Code(s): E11.9 - Type 2 diabetes mellitus without complications (5) Hypertension Current Visit: Yes Status: Acute Assessment and plan: Controlled, cont current regimen. Qualifiers: Hypertension type: essential hypertension Qualified Code(s): I10 - Essential (primary) hypertension (6) DVT prophylaxis Current Visit: Yes Status: Acute Assessment and plan: Heparin 5000 U SC TID - Subjective Interval history: Patient seen/eval at bedside. Interval he would be evaluated by Pulmonology service, and agree to bronchoscopy, has been NPO since midnight. He endorses pleuritic discomfort with cough, but it is improved. Denies any substernal chest pain/pressure, no fever, chills, nvd. He would like a cup of coffee but understands he is NPO at this time. - Constitutional Vitals: Temp Pulse Resp BP Pulse Ox 98.3 F 89 18 116/62 96 07/27/16 07:18 07/27/16 07:18 07/27/16 07:18 07/27/16 07:18 07/27/16 09:22 General appearance: Present: A&O X 3, underweight - Head Head exam: Present: atraumatic, normocephalic - Eye Eye exam: Present: EOMI, sclera anicteric - ENT ENT exam: Present: mucous membranes moist - Neck Neck exam general surgery: Present: supple, trachea midline - Respiratory Respiratory exam: Present: rhonchi (scant ronchi all rush, left field diminished) - Cardiovascular Cardiovascular exam: Present: +S1, +S2. Absent: JVD - GI/Abdominal GI/Abdominal exam: Present: soft, no peritoneal signs - Extremities Exam Extremities exam: Present: warm, radial pulses palpable and symetrical. Absent : pedal edema, tenderness Internal Medicine: Result - Labs CBC & Chem 7: 07/27/16 05:48 07/27/16 05:48 Labs: Short CBC 07/27/16 Range/Units 05:48 WBC 18.7 H (4.3-11.1) K/mcL Hgb 10.2 L D (12.9-16.9) g/dL Hct 30.2 L (37.5-50.1) % Plt Count 346 (140-400) K/mcL Neutrophils # 17.7 H (1.6-8.9) K/mcL BMP 07/27/16 05:48 Sodium 133 L Potassium 3.8 Chloride 106 Carbon Dioxide 18 L BUN 24 Creatinine 1.18 Glucose 357 H Calcium 7.9 L - ABG Interpretation ABG results: PT/INR, D-dimer PT 13.3 Seconds (9.4-12.1) H 07/25/16 22:06 Consult Discharge Plan - Plan Referrals: Kev Mccloud Jr, MD [Primary Care Provider] - Rocio Reyes CNP [Advanced Practice Nurse] - 08/02/16 1:30 am (HOSPITAL FOLLOW UP) <Sergo Jay - Last Filed: 07/27/16 17:15> Date of Encounter: 07/27/16 - Constitutional Vitals: Temp Pulse Resp BP Pulse Ox 97.7 F 105 18 127/63 95 07/27/16 15:57 07/27/16 15:57 07/27/16 15:57 07/27/16 15:57 07/27/16 15:57 Internal Medicine: Result - Labs CBC & Chem 7: 07/27/16 05:48 07/27/16 05:48 Labs: Short CBC 07/27/16 Range/Units 05:48 WBC 18.7 H (4.3-11.1) K/mcL Hgb 10.2 L D (12.9-16.9) g/dL Hct 30.2 L (37.5-50.1) % Plt Count 346 (140-400) K/mcL Neutrophils # 17.7 H (1.6-8.9) K/mcL BMP 07/27/16 05:48 Sodium 133 L Potassium 3.8 Chloride 106 Carbon Dioxide 18 L BUN 24 Creatinine 1.18 Glucose 357 H Calcium 7.9 L - ABG Interpretation ABG results: PT/INR, D-dimer PT 13.3 Seconds (9.4-12.1) H 07/25/16 22:06 - Attending Attestation I examined this patient and my medical decision-making was reviewed with the [employer] DEAN/PA/Advanced Practice Nurse/Resident Physician. I agree with the documented findings, disposition and treatment plan as described except to the extent set forth below. Patient had bronchoscopy today. Follow bal reuslts.
[2016-07-27] MEDS: Levofloxacin 500 MG/100 ML 500 MG/100 ML BAG IVPB SCH (11:41)
[2016-07-27] MEDS ORDERED: Ondansetron 4 MG/2 ML VIAL ONE (13:00)
[2016-07-27] MEDS ORDERED: *HR* FentaNYL (PF) 100 MCG/2 ML VIAL ONE (13:00)
[2016-07-27] MEDS ORDERED: Lidocaine -MPF 4% 5 ML AMPUL ONE (13:00)
[2016-07-27] MEDS ORDERED: Dexamethasone 4 MG/ML VIAL ONE (13:00)
[2016-07-27] MEDS ORDERED: Lidocaine -MPF 2% 2 ML VIAL ONE (13:00)
[2016-07-27] MEDS ORDERED: *HR* Propofol 200 MG/20 ML VIAL IVP ONE (13:00)
[2016-07-27] MEDS ORDERED: Propofol 500 MG/50 ML INFUS..BTL ONE (13:02)
--- NOTE | 2016-07-27 13:24 | Anesthesia Evaluation PreOp ---
Date of Encounter: 07/27/16 Time of Encounter: 13:22 - Past History Planned Operation: Bronch Cardiac History: HTN (maintained on Losartan), Hyperlipidemia (maintaiend on Simvastatin) Pulmonary History: Former smoker (quit 40yrs ago), COPD (Acute mild exacerbation this hospitalization), Other (RUL mass. Hx of NonSmall Cell Lung Ca s/p chemo & radiation 2015. [facility]/Community Acquired pneumonia) Other Medical History: Diabetes Type II Anesthesia History: No Prior Anesthetic Complications, Past Anesthesia (Suzan, Pacemaker, GAstric ulcer surery,) Alcohol Use: none Drug use: none Medications and Allergies Aspirin 81 mg PO DAILY 04/04/15 [History] Losartan [Cozaar] 50 mg PO DAILY 04/04/15 [History] Metformin HCl [Glucophage Xr] 500 mg PO TID 04/04/15 [History] Simvastatin [Zocor] 20 mg PO HS 04/04/15 [History] Allergies atorvastatin [From Lipitor] Allergy (Severe, Verified 07/25/16 22:25) Shakiness - Meds/Allergy Pre-op Review Medications Reviewed: Yes Allergies Reviewed: Yes Beta Blockers on Current Med List: No Anesthesia Results - Labs 07/27/16 05:48 07/27/16 05:48 Laboratory Tests 07/25/16 07/25/16 07/27/16 18:10 22:06 05:48 PT 13.3 H INR 1.2 APTT 30.2 Est GFR (Non-Af Amer) 59 L POC Glucose B-Natriuretic Peptide 158 H 07/27/16 07:21 PT INR APTT Est GFR (Non-Af Amer) POC Glucose 338 H B-Natriuretic Peptide Laboratory Results Impressions Chest X-Ray 07/25/16 17:49 IMPRESSION: 1. No acute cardiopulmonary process. 2. Unchanged suprahilar right upper lobe mass. D/ / Venkat Lr MD / Venkat Lr MD Interpreting Provider: Venkat Lr MD Chest CTA 07/25/16 18:04 IMPRESSION: 1. No findings of pulmonary embolism. 2. Patchy minimal to mild bronchial wall thickening in the lower lobes with associated bronchial secretions especially on the left, suggesting bronchitis. 3. New nodular opacities in the lower lobes as above, likely infectious or inflammatory given the interval between studies. Recommend attention on follow-up imaging. 4. Decreased size and solid component of previously seen prior nodules in the right middle lobe, suggesting a resolving infectious and/or inflammatory process. 5. Unchanged suprahilar right upper lobe mass and other bilateral nodules as described on the prior study. 6. Mild centrilobular and minimal paraseptal emphysema. 7. Normal heart size with mild coronary atherosclerotic calcifications and mild right ventricular hypertrophy. D/ / Venkat Lr MD / Venkat Lr MD Interpreting Provider: Venkat Lr MD - Imaging EKG: image reviewed (A-V paced 87bpm) Anesthesia Exam O2 Sat Weight 53.2 kg O2 Sat by Pulse Oximetry 96 O2 Sat by Pulse Oximetry 96 O2 Sat by Pulse Oximetry 93 O2 Sat by Pulse Oximetry 91 O2 Sat by Pulse Oximetry 96 O2 Sat by Pulse Oximetry 96 O2 Sat by Pulse Oximetry 96 O2 Sat by Pulse Oximetry 96 O2 Sat by Pulse Oximetry 96 Vital Signs Temp Pulse Resp BP Pulse Ox 97.6 F 102 20 98/57 95 07/25/16 17:13 07/25/16 17:13 07/25/16 17:13 07/25/16 17:13 07/25/16 17:13 Height: 5'5" Weight: 117# BMI = 19.5 NPO (# of Hours): MNoc - HEENT Pupil (Motor): Pupils equal, EOMI Mallampati: II Teeth: Edentulous Oral Opening: Greater than 3 - [employer] LOC: Oriented [employer] Motor: Normal RUE, Normal LUE, Normal RLE, Normal LLE, Normal Face [employer] Sensory: Normal: RUE, LUE, RLE, LLE, Face - Cardiac Rhythm: Regular Murmur: None - Pulmonary Breath Sounds: bilateral Clear Respiratory Effort: Symmetrical Anesthesia Assess/Plan ASA Score: 3 (NSC Lung Ca, COPD, HTN, Chol,) Anesthetic Plan: General Monitoring Plan: Standard Monitors Recovery Plan: PACU Anes Supervising Prov Stmt: Pt seen/evaluated, R&B discussed, questions answered and consent obtained. - MD Fox
[2016-07-27] MEDS: Aspirin 81 MG TAB.CHEW PO SCH (14:08)
[2016-07-27] MEDS ORDERED: *HR* Labetalol 20 MG/4 ML SYRINGE IVP PRN (14:19)
[2016-07-27] MEDS ORDERED: *HR* HYDROmorphone (PF) 1 MG/ML SYRINGE IVP PRN (14:19)
[2016-07-27] MEDS ORDERED: *HR* Promethazine 25 MG/ML VIAL IVP PRN (14:19)
--- NOTE | 2016-07-27 15:12 | Anesthesia Evaluation Post Op ---
Date of Encounter: 07/27/16 Time of Encounter: 15:08 - Vital Signs Vital Signs: vss patient resting comfortable with eyes closed - Lungs Lungs: Clear Ascult./Percussion - Airway Airway: Non-obstructed - Cardiovascular Regular Rate, Baseline Rhythm - Mental Status Mental Status: Alert & Oriented, Answers Appropriately - Pain Pain Scale: 0 Pain Scale used: Numeric (1 - 10) - Nausea Vomiting Nausea Vomiting: Not Present - Hydration Hydration: Tolerates oral liquids Notes: 07/27/16 15:14 patient stable - Discharge PostOp Status: Transfer Patient to floor
[2016-07-27 15:15] LABS: Source of Body Fluid lt upper lobe bal; Source of Body Fluid rt. upper lobe bal
[2016-07-27 16:47] LABS: Appearance of Body Fluid Cloudy (Clear); Volume of Body Fluid 12 mL
[2016-07-27 16:52] LABS: Appearance of Body Fluid Hazy (Clear); Volume of Body Fluid 20 mL
[2016-07-28] MEDS: *HR* Heparin 5,000 UNIT/ML VIAL SQ SCH ×2 (00:27→08:29)
[2016-07-28] MEDS: Piperacillin/Tazobactam 3.375 GM in D5% in Water (Mini-Bag+) 100 ML IVPB SCH ×2 (00:27→08:30)
[2016-07-28] MEDS: Ipratropium/Albuterol Neb 3 ML IH SCH ×2 (03:52→10:44)
[2016-07-28 07:10] LABS: BUN/Creatinine Ratio 19 (6-26); Blood Urea Nitrogen 23 mg/dL (8-26); Calcium 7.7 mg/dL (8.6-10.8); Carbon Dioxide 19 mEq/L (19-29); Chloride 107 mEq/L (98-109); Glucose 323 mg/dL (70-99); Magnesium 1.5 mg/dL (1.6-2.6); Osmolality,Calculated 296 (280-300); Potassium 3.8 mEq/L (3.5-4.5); Sodium 135 mEq/L (136-145); eGFR For African Americans > 60 (> 60); eGFR For Non-African Americans 58 (> 60)
[2016-07-28 07:22] LABS: Basophils % 0.1 %; Hematocrit 31.2 % (37.5-50.1); Hemoglobin 10.5 g/dL (12.9-16.9); Immature Granulocytes % 1.4 % (0-4); Lymphocytes # 0.4 K/mcL (0.6-4.6); Lymphocytes % 2.7 %; Mean Corpuscular HGB Conc 33.7 g/dL (31.6-35.5); Mean Corpuscular Hemoglobin 28.6 pg (28.0-33.3); Mean Platelet Volume 10.1 fL (9.4-12.4); Monocytes # 0.6 K/mcL (0.0-1.3); Monocytes % 3.8 %; Neutrophils # 13.4 K/mcL (1.6-8.9); Platelet Count 345 K/mcL (140-400); Red Blood Count 3.67 M/mcL (4.19-5.50); Red Cell Distribution Width 14.5 % (11.5-14.5)
[2016-07-28] MEDS: methylPREDNISolone 125 MG/2 ML VIAL IV SCH (08:30)
[2016-07-28] MEDS: Aspirin 81 MG TAB.CHEW PO SCH (08:30)
[2016-07-28] MEDS: *HR* Metformin 500 MG TABLET PO SCH (08:30)
[2016-07-28] MEDS: Insulin LISPRO 300 UNITS/3 ML VIAL SQ SCH (08:31)
[2016-07-28] MEDS ORDERED: Magnesium Oxide 400 MG TABLET PO SCH (10:30)
[2016-07-28 10:38] VITALS: BP 119/52
--- NOTE | 2016-07-28 11:21 | Discharge Summary ---
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 (4) Diabetes Priority: Secondary Status: Chronic Qualifiers: Diabetes mellitus type: type 2 Diabetes mellitus complication status: without complication Diabetes mellitus care home insulin use: without care home use Qualified Code(s): E11.9 - Type 2 diabetes mellitus without complications (5) Hypertension Priority: Secondary Status: Chronic Qualifiers: Hypertension type: essential hypertension Qualified Code(s): I10 - Essential (primary) hypertension (6) DVT prophylaxis Priority: Secondary Status: Acute - Discharge Medications Prescriptions: Magnesium Oxide [Mag-Ox] 400 mg PO DAILY #20 tablet PredniSONE 40 mg PO DAILY #6 tablet Home Medications: Aspirin 81 mg PO DAILY 04/04/15 [History] Losartan [Cozaar] 50 mg PO DAILY 04/04/15 [History] Metformin HCl [Glucophage Xr] 500 mg PO TID 04/04/15 [History] Simvastatin [Zocor] 20 mg PO HS 04/04/15 [History] Magnesium Oxide [Mag-Ox] 400 mg PO DAILY #20 tablet 07/28/16 [Rx] PredniSONE 40 mg PO DAILY #6 tablet 07/28/16 [Rx] Allergies/Adverse Reactions: Allergies atorvastatin [From Lipitor] Allergy (Severe, Verified 07/25/16 22:25) [facility] Date of admission: 07/25/16 22:13 Primary care physician: Kev Mccloud Jr, MD Consults: 07/26/16 06:13 Consult to Coil Connector [CONS] Routine Reason for SW Consult: patient stated that he lives at home alone and that he does have family that live across the road but he feels that he will need more help at home. 07/26/16 09:51 Consult to Respiratory Therapy [CONS] Routine Reason for Consult: Induced sputum sample, please. History Left upper lobe lung cancer, possibly returned vs infectious process. Failed outpatient therapy. Call Completed: No 07/26/16 10:16 Consult to Pulmonology [CONS] Routine Consulting Provider: [facility] Reason for Consult: History NSCLC, interval increase in size and metabolic activity. Here for HCAP failed outpatient levaquin. Consideration of bronchoscopy for further delineation. Notified resident physician on service. Call Completed: No Discharging clinician: Sergo Jay Anticipated date of discharge: 07/28/16 - Patient Status Disposition: Home, Self-Care Condition: Fair Functional capacity at discharge: independent ambulation Overall status at discharge: patient is progressing back to baseline - Discharge Instructions Instructions: Choline Magnesium Trisalicylate (By mouth), Prednisone (By mouth) , Acute Bronchitis (DC) Follow Up With: Kev Mccloud Jr, MD [Primary Care Provider] - Rocio Reyes CNP [Advanced Practice Nurse] - 08/02/16 1:30 am (HOSPITAL FOLLOW UP) - Diet and Activity Activity: increase activity as tolerated Diet: advance to your usual diet Hospital course: Mr. Corado is a 85 year old male. History Non-small cell lung cancer May 2014, treated with SBRT. Interval PET scan 04/27/16 would show hypermetabolic activity. He would be recommended for repeat bronchoscopy for further delineation of lung mass. Patient would present to [facility] with dyspnea, pleurisy, and productive sputum, suggestive of COPD exacerbation on 07/25/16 Empiric antibiotics initiated. Blood cultures 2 negative, urine culture negative, urinary antigen negative Legionella, negative strep pneumoniae. Respiratory infectious panel negative. He would undergo imaging disclosing: Chest CTA 07/25/16 18:04 IMPRESSION: 1. No findings of pulmonary embolism. 2. Patchy minimal to mild bronchial wall thickening in the lower lobes with associated bronchial secretions especially on the left, suggesting bronchitis. 3. New nodular opacities in the lower lobes as above, likely infectious or inflammatory given the interval between studies. Recommend attention on follow-up imaging. 4. Decreased size and solid component of previously seen prior nodules in the right middle lobe, suggesting a resolving infectious and/or inflammatory process. 5. Unchanged suprahilar right upper lobe mass and other bilateral nodules as described on the prior study. 6. Mild centrilobular and minimal paraseptal emphysema. 7. Normal heart size with mild coronary atherosclerotic calcifications and mild right ventricular hypertrophy. Pulmonology service consulted for bronchoscopy, bronchoscopy was performed on : With findings disclosing bilateral lung abnormalities, numerate appears fibrotic, lesion was not transversed. BAL performed, Gram stain was not revealing. Normal upper respiratory tract jimena. Sent for cytology results pending. At time of discharge, patient was clinically improved, hemodynamically stable, progressing to baseline, and agreeable with plan of care. Patient was advised to seek immediate medical attention for any new or worsening symptoms including but not limited to fever, chills, chest pain, chest pressure, dyspnea, cough, abdominal pain, nausea, vomiting, diarrhea, bloody stool, urine and the patient voiced understanding. Patient will follow-up with primary care physician: Dr. Mccloud. Will finish course of antibiotics, and 3 more days of prednisone therapy for COPD exacerbation. - Time Spent with Patient Total time spent providing and/or coordinating discharge services: Greater than 30 minutes - Constitutional Vitals: Temp Pulse Resp BP Pulse Ox 97.5 F L 83 16 119/52 95 07/28/16 10:35 07/28/16 10:35 07/28/16 10:46 07/28/16 10:35 07/28/16 10:46 General appearance: Present: disheveled, A&O X 3, underweight - Head Head exam: Present: atraumatic, normocephalic - Eye Eye exam: Present: EOMI - ENT ENT exam: Present: mucous membranes moist - Respiratory Respiratory exam: Present: rhonchi (scant). Absent: accessory muscle use, wheezes, tachypnea - Cardiovascular Cardiovascular exam: Present: +S1, +S2. Absent: JVD - GI/Abdominal GI/Abdominal exam: Present: soft. Absent: tenderness, no peritoneal signs - Extremities Exam Extremities exam: Present: warm, radial pulses palpable and symetrical <Sergo Jay - Last Filed: 07/28/16 14:03> Date of Encounter: 07/28/16 Date of admission: 07/25/16 22:13 Primary care physician: Kev Mccloud Jr, MD Consults: 07/26/16 06:13 Consult to Coil Connector [CONS] Routine Reason for SW Consult: patient stated that he lives at home alone and that he does have family that live across the road but he feels that he will need more help at home. 07/26/16 09:51 Consult to Respiratory Therapy [CONS] Routine Reason for Consult: Induced sputum sample, please. History Left upper lobe lung cancer, possibly returned vs infectious process. Failed outpatient therapy. Call Completed: No 07/26/16 10:16 Consult to Pulmonology [CONS] Routine Consulting Provider: [facility] Reason for Consult: History NSCLC, interval increase in size and metabolic activity. Here for HCAP failed outpatient levaquin. Consideration of bronchoscopy for further delineation. Notified resident physician on service. Call Completed: No Hospital course: Mr. Corado is a 85 year old male - Time Spent with Patient Total time spent providing and/or coordinating discharge services: - Constitutional Vitals: Temp Pulse Resp BP Pulse Ox 97.5 F L 83 16 119/52 97 07/28/16 10:35 07/28/16 10:35 07/28/16 10:46 07/28/16 10:35 07/28/16 11:21 - Attending Attestation I examined this patient and my medical decision-making was reviewed with the VACUUM EXTRACTOR OPERATOR/PA/Advanced Practice Nurse/Resident Physician. I agree with the documented findings, disposition and treatment plan as described except to the extent set forth below. S/P bronchoscopy. Discharge today and follow up as outpatient.
[2016-07-28] MEDS ORDERED: Aminoglycoside Consult 1 EACH MC ONE (12:15)
== END 2016-07-28 12:16 | disposition home or self-care (01) | DRG 853 ==
LOC: EMEROO 17:04 → 2NENU 17:04 → OBSVTOIN 22:13 → SUATTDRO 22:13 → 2NENU 23:52
PROVIDERS: ADMIT Internal Medicine; ATTEND Internal Medicine
PROC: ENDOBBX (2016-07-27 17:30)

== ENCOUNTER 2017-07-08 05:37 | Inpatient (IN) ==
[2017-07-08] MEDS ORDERED: Ipratropium/Albuterol Neb 3 ML IH ONE (06:09)
[2017-07-08] MEDS ORDERED: predniSONE 20 MG TABLET PO ONE (06:11)
--- NOTE | 2017-07-08 06:15 | Emergency Department Note ---
Disposition Clinical Impression: Acute exacerbation of chronic obstructive airways disease, Pneumonia, Lung mass Disposition: Admitted As Inpatient Condition: Good Referrals: Kev Mccloud Jr, MD [Primary Care Provider] - Forms: ED Satisfaction Letter Time of Disposition: 07:07 [facility] - General Chief Complaint: ED Shortness of Breath/Dyspnea Stated Complaint: Dyspnea Time Seen by Provider: 07/08/17 06:05 Source: patient, family Mode of arrival: wheelchair Limitations: no limitations Nursing Notes Reviewed: Yes Vital Signs Reviewed: Yes - History of Present Illness 86-year-old male presents to the emergency department complaining of shortness of breath. Patient does have history of lung cancer 3 years ago underwent treatment but has now been remission no problems since. He does have history of emphysema and was a smoker 40 years ago. Patient states he has had no fevers. Patient states the shortness of breath started at approximate 4:00 this morning is unable To breath. He is not normally on oxygen at home does not have inhalers. He states that he has no nausea or vomiting or any chest pain. Patient otherwise having no complaints including headache, blurry vision , pain, back pain, chest pain, abdominal pain, pain with urination, changes in bowel movements compared to the arms or legs or generalized weakness, nausea, vomiting. - Related Data Home Medications Medication Instructions Recorded Confirmed Aspirin 81 mg PO DAILY 04/04/15 07/25/16 Losartan [Cozaar] 50 mg PO DAILY 04/04/15 07/25/16 Simvastatin [Zocor] 20 mg PO HS 04/04/15 07/25/16 Allergies Allergy/AdvReac Type Severity Reaction Status Date / Time atorvastatin [From Lipitor] Allergy Severe Shakiness Verified 07/08/17 07:35 Review of Systems: 10 point review of systems done and negative unless otherwise stated in history of present illness. All systems ED: reviewed and negative except as stated. Review of Systems: As Per HPI Past Medical History - Past Medical History Attestation: Yes The following information was validated with the patient. Medical history: Reports: diabetes, hyperlipidemia, hypertension Surgical history: Reports: cholecystectomy, pacemaker Psychiatric history: Reports: no psych history - Social History Smoking Status: Former smoker Smokeless Tobacco Status: No Alcohol use: Reports: none Drug use: Reports: none Physical Exam - General Limitations: no limitations General appearance: alert, in no apparent distress - Head Head exam: atraumatic - Eye Eye exam: Present: normal appearance, PERRL, EOMI - ENT ENT exam: normal exam, normal oropharynx, mucous membranes moist - Neck Neck exam: Present: normal inspection, full ROM, trachea midline - Chest Chest inspection: Present: normal inspection, symmetric chest wall rise - Respiratory Respiratory exam: Present: normal lung sounds bilaterally, wheezes (And expiratory wheezes on the left side), accessory muscle use. Absent: respiratory distress, stridor - Cardiovascular Cardiovascular exam: Present: regular rate, normal rhythm, normal heart sounds - Abdominal Exam Abdominal exam: Present: soft, Non-Tender. Absent: tenderness, distention, guarding, rebound, rigidity - Extremities Exam Extremities exam: Present: normal inspection, full ROM. Absent: tenderness, pedal edema - Expanded Lower Extremity Exam Neurovascular/Tendon exam: Present: normal capillary refill. Absent: pulse deficit, motor deficit, sensory deficit, tendon deficit - Back Exam Back exam: Present: normal inspection, full ROM. Absent: tenderness, CVA tenderness (R), CVA tenderness (L) - Neurological Exam Neurological exam: Present: alert, oriented X3 - Skin Skin exam: Present: warm, dry, intact, normal color Course Course Narrative: 86-year-old male presents to the emergency department complaining of shortness of breath. There is a history of lung cancer. We have basic labs including CBC , BNP, BMP, lactate, troponin, EKG and chest x-ray. We will give patient triple DuoNeb treatment as well as oral steroids. Disposition pending results. Vital Signs Temperature 97.6 F 07/08/17 05:40 Pulse Rate 98 07/08/17 05:40 Respiratory Rate 20 07/08/17 05:40 Blood Pressure 159/82 07/08/17 05:40 O2 Sat by Pulse Oximetry 87 07/08/17 05:40 Temperature 97.6 F 07/08/17 05:40 Pulse Rate 70 07/08/17 07:43 Respiratory Rate 24 07/08/17 07:43 Blood Pressure 116/49 07/08/17 07:43 O2 Sat by Pulse Oximetry 97 07/08/17 07:43 Oxygen Delivery Oxygen Delivery Nasal Cannula Shortness of Breath/Dyspnea - MDM Narrative Medical decision making narrative: 86-year-old male presented to the emergency department complaining of shortness of breath. Patient has a history of lung cancer is in remission. Chest x-ray was done in triage which did show flattened diaphragm was likely due to emphysema or COPD. Patient did have bilateral wheezes that were end expiratory treated him with triple DuoNeb treatments as well as oral steroids. Due to patient's history results CT angios of the chest was necessary to be sure there is no pulmonary L as well as he was tachycardic and hypoxic on evaluation. Patient's labs are still pending when I am going off shift as well as the CT angiogram patient was handed off to the daytime physician Dr. Bansal. Patient is still a patient and labs and imaging are still pending. Chest X-Ray 07/08/17 05:47 IMPRESSION: No acute process. D/ / Margi Mcgill MD / Margi Mcgill MD Interpreting Provider: Margi Mcgill MD Patient was signed out to me by the overnight doctor. Briefly, this was an 86- year-old male presented with cough and shortness of breath. History of lung cancer. Patient states been in remission for nearly a year. Workup in the ER reveals bilateral pulmonary infiltrates specifically in the lower lobes bilaterally but worse on the left side. I will start him on IV Rocephin and IV Zithromax. We will consult with pulmonary as well. - Medical Records Medical records reviewed: Yes I reviewed the patient's medical records. - Lab Data Lab results reviewed: Yes I reviewed the patient's lab results. Result diagrams: 07/08/17 06:43 07/08/17 06:43 Lab Results 07/08/17 07/08/17 07/08/17 Range/Units 06:43 06:43 06:43 WBC 24.2 H (4.3-11.1) K/mcL RBC 4.50 (4.19-5.50) M/mcL Hgb 13.2 (12.9-16.9) g/dL Hct 38.9 (37.5-50.1) % MCV 86.4 (83.0-100.0) fL MCH 29.3 (28.0-33.3) pg MCHC 33.9 (31.6-35.5) g/dL RDW 14.4 (11.5-14.5) % Plt Count 272 (140-400) K/mcL MPV 9.7 (9.4-12.4) fL Seg Neutrophils % 68.0 % Band Neutrophils % 14.0 H (0-4) % Lymphocytes % 4.0 % Monocytes % 10.0 % Metamyelocytes % 4.0 H (0) % Neutrophils # 19.8 H (1.6-8.9) K/mcL Lymphocytes # 1.0 (0.6-4.6) K/mcL Monocytes # 2.4 H (0.0-1.3) K/mcL Platelet Estimate Normal (Normal) Clumped Platelets Few A (Not Present) Sodium 136 (136-145) mEq/L Potassium 5.0 H (3.5-4.5) mEq/L Chloride 103 (98-109) mEq/L Carbon Dioxide 20 (19-29) mEq/L BUN 38 H (8-26) mg/dL Creatinine 1.57 H (0.72-1.25) mg/dL Est GFR ( Amer) 51 L (> 60) Est GFR (Non-Af Amer) 42 L (> 60) BUN/Creatinine Ratio 24 (6-26) Glucose 304 H (70-99) mg/dL Calculated Osmolality 302 H (280-300) Lactic Acid 2.8 H (0.5-2.2) mmol/L Calcium 9.6 (8.6-10.8) mg/dL Troponin I (0-0.03) ng/mL B-Natriuretic Peptide (0-100) pg/mL 07/08/17 07/08/17 Range/Units 06:43 06:43 WBC (4.3-11.1) K/mcL RBC (4.19-5.50) M/mcL Hgb (12.9-16.9) g/dL Hct (37.5-50.1) % MCV (83.0-100.0) fL MCH (28.0-33.3) pg MCHC (31.6-35.5) g/dL RDW (11.5-14.5) % Plt Count (140-400) K/mcL MPV (9.4-12.4) fL Seg Neutrophils % % Band Neutrophils % (0-4) % Lymphocytes % % Monocytes % % Metamyelocytes % (0) % Neutrophils # (1.6-8.9) K/mcL Lymphocytes # (0.6-4.6) K/mcL Monocytes # (0.0-1.3) K/mcL Platelet Estimate (Normal) Clumped Platelets (Not Present) Sodium (136-145) mEq/L Potassium (3.5-4.5) mEq/L Chloride (98-109) mEq/L Carbon Dioxide (19-29) mEq/L BUN (8-26) mg/dL Creatinine (0.72-1.25) mg/dL Est GFR ( Amer) (> 60) Est GFR (Non-Af Amer) (> 60) BUN/Creatinine Ratio (6-26) Glucose (70-99) mg/dL Calculated Osmolality (280-300) Lactic Acid (0.5-2.2) mmol/L Calcium (8.6-10.8) mg/dL Troponin I 0.03 (0-0.03) ng/mL B-Natriuretic Peptide 364 H (0-100) pg/mL - Radiology Data Radiology results reviewed: Yes I reviewed the patient's radiology results. - EKG Data EKG attestation: Yes I reviewed and interpreted this EKG. EKG results narrative: EKG done at 0 546 review by myself and the attending shows an electronically ventricular paced rhythm at a rate of 97, AL 191, QRS 150, QTC [address] changes, no acute T-wave changes, no signs of hypertrophy or heart strength, no signs of heart block, no signs of WPW/Brugada syndrome. This EKG is unchanged based on old one done 03/04/17. Attestation Statement - Attestation Attestation: I examined this patient and my medical decision-making was reviewed with the Resident Physician. I agree with the documented findings, disposition and treatment plan as described except to the extent set forth below. Findings consistent with possible complications of previous lung cancer. We will obtain CTA to further evaluate. Bronchodilators will be provided. Antibiotics and steroids will also be provided. Final disposition pending results of advanced imaging.
[2017-07-08 07:02] LABS: Hematocrit 38.9 % (37.5-50.1); Hemoglobin 13.2 g/dL (12.9-16.9); Mean Corpuscular HGB Conc 33.9 g/dL (31.6-35.5); Mean Corpuscular Hemoglobin 29.3 pg (28.0-33.3); Mean Corpuscular Volume 86.4 fL (83.0-100.0); Mean Platelet Volume 9.7 fL (9.4-12.4); Platelet Count 272 K/mcL (140-400); Red Cell Distribution Width 14.4 % (11.5-14.5)
[2017-07-08 07:13] LABS: Calcium 9.6 mg/dL (8.6-10.8)
[2017-07-08 07:29] LABS: Monocytes # 2.4 K/mcL (0.0-1.3); Neutrophils # 19.8 K/mcL (1.6-8.9); Platelet Clumps Few (Not Present); Platelet Estimate Normal (Normal)
[2017-07-08] MEDS ORDERED: 0.9 % Sodium Chloride 1,000 ML IVC ONE ×3 (07:58→09:41)
[2017-07-08] MEDS ORDERED: cefTRIAXone 1,000 MG in Water for inj. (sterile) 10 ML IVP ONE (08:17)
[2017-07-08] MEDS ORDERED: Azithromycin 500 MG in D5% in Water 250 ML IVPB ONE (08:17)
--- NOTE | 2017-07-08 08:55 | Pulmonology Consult Note ---
Date of Encounter: 07/08/17 Time of Encounter: 08:45 Assessment and Plan (1) Acute exacerbation of chronic obstructive airways disease Current Visit: Yes Status: Chronic Patient has signs and symptoms of COPD , will treat him with steroids and bronchodilators (2) Community acquired pneumonia Current Visit: No Status: Acute Will send Respiratory infection panel to rule out flu and will send lab work for mycoplasma and Legionella to continue ceftriaxone and azithromycin . Qualifiers: Laterality: unspecified laterality Qualified Code(s): J18.9 - Pneumonia, unspecified organism (3) Lung mass Current Visit: Yes Status: Chronic Patient RUL mass size is the same there is a concerning new hilar LN mostly in the infra hilar region with [address] most likely reactive concerning for metastatic disease will need EBUS under [place] tentatively will put in schedule for tomorrow if he is lot better will try doing the EBUS tomorrow other rodriguez hold off and reasses. History of Present Illness Consult date: 07/08/17 Requesting physician: Lauri Bansal Reason for consult: dyspnea, cough, COPD, lung mass Chief complaint: cough and dyspnea History of present illness: 86 year old male with past medical history of COPD , RUL lung mass which was diagnosed in 2015 as non small cell lung ca underwent SBRT has some radiation changes in the upper lobe , comes with 3-4 days of flu like symptoms some cough and sputum production increased shortness of breadth , denies any chest pain or tightness . CTA was done to rule out PE no large or segmental PE was noted , has bilateral low lobe ground glass opacity concerning for pneumonia , denies any other constitutional symptoms Pulmonary was consulted for evaluation of any lung cancer recurrence. Past Med Surg Social Fam HX - Past Medical History Medical history: diabetes, hyperlipidemia, hypertension Psychiatric history: no psych history - Past Surgical History Surgical History: cholecystectomy, pacemaker - Social History Smoking Status: Former smoker Smokeless Tobacco Status: No Alcohol use: none Drug use: none Medications and Allergies Aspirin 81 mg PO DAILY 04/04/15 [History] Losartan [Cozaar] 50 mg PO DAILY 04/04/15 [History] Simvastatin [Zocor] 20 mg PO HS 04/04/15 [History] Glimepiride [Amaryl] 4 mg PO DAILY 07/08/17 [History] 3 Allergy/AdvReac Type Severity Reaction Status Date / Time atorvastatin [From Lipitor] AdvReac Severe Shakiness Verified 12/18/17 08:26 All Systems: A 10-system review of systems was performed and is negative for pertinent findings except as documented above in the HPI. Physical Examination Effort: mildly labored Auscultation: bilateral: wheezes Results - Laboratory Findings CBC and BMP: 07/08/17 06:43 07/08/17 06:43 Abnormal lab findings: Abnormal lab results WBC 24.2 K/mcL (4.3-11.1) H 07/08/17 06:43 Band Neutrophils % 14.0 % (0-4) H 07/08/17 06:43 Metamyelocytes % 4.0 % (0) H 07/08/17 06:43 Neutrophils # 19.8 K/mcL (1.6-8.9) H 07/08/17 06:43 Monocytes # 2.4 K/mcL (0.0-1.3) H 07/08/17 06:43 Clumped Platelets Few (Not Present) A 07/08/17 06:43 Potassium 5.0 mEq/L (3.5-4.5) H 07/08/17 06:43 BUN 38 mg/dL (8-26) H 07/08/17 06:43 Creatinine 1.57 mg/dL (0.72-1.25) H 07/08/17 06:43 Est GFR ( Amer) 51 (> 60) L 07/08/17 06:43 Est GFR (Non-Af Amer) 42 (> 60) L 07/08/17 06:43 Glucose 304 mg/dL (70-99) H 07/08/17 06:43 Calculated Osmolality 302 (280-300) H 07/08/17 06:43 Lactic Acid 6.8 mmol/L (0.5-2.2) H* 07/08/17 08:35 B-Natriuretic Peptide 364 pg/mL (0-100) H 07/08/17 06:43 - Clinical Findings Intake & Output: Intake & Output 07/07/17 07/08/17 07/08/17 23:59 07:59 15:59 Intake Total Balance Consult Discharge Plan - Plan Referrals: Kev Mccloud Jr, MD [Primary Care Provider] -
--- NOTE | 2017-07-08 09:08 | Internal Med History&Physical ---
Date of Encounter: 07/08/17 Time of Encounter: 09:05 Assessment and Plan (1) Poor nutrition Current visit: Yes Status: Acute per family poor po intake likely due to cancer will consult nutrition (2) Acute exacerbation of chronic obstructive airways disease Current visit: Yes Status: Chronic exercebation due to pneumonia (3) Lung mass Current visit: Yes Status: Acute Patient had history of lung cancer and was treated in the past likely has recurrence per CT DR Gamez consulted from ER (4) Pneumonia Current visit: Yes Status: Acute Community-acquired pneumonia because of lung cancer will start on zosyn Qualifiers: Pneumonia type: due to unspecified organism Laterality: right Lung location: lower lobe of lung Qualified Code(s): J18.1 - Lobar pneumonia, unspecified organism (5) Sepsis Current visit: No Status: Acute high lactic acid , wbc will send blood cultures Qualifiers: Sepsis type: sepsis due to unspecified organism Qualified Code(s): A41.9 - Sepsis, unspecified organism (6) Diabetes Current visit: No Status: Chronic resume home meds and sliding scale Qualifiers: Diabetes mellitus type: type 2 Diabetes mellitus complication status: without complication Diabetes mellitus skilled nursing insulin use: without intermediate accountant use Qualified Code(s): E11.9 - Type 2 diabetes mellitus without complications (7) Hypertension Current visit: No Status: Chronic well controlled Qualifiers: Hypertension type: essential hypertension Qualified Code(s): I10 - Essential (primary) hypertension Internal Medicine - H&P: HPI Chief complaint: sob and cough Admitted From: Emergency Dept Plans for Post Hospital Care: Home History of present illness: Mr. Corado is a 86 year old male Patient with history of lung cancer, diabetes, hypertension, COPD, patient brought in by family due to increased shortness of breath cough productive of thick sputum poor appetite. In the emergency room evaluation CT of the chest suggestive of right lower lobe pneumonia and possible right lobe mass as well. Patient admitted for pneumonia and also pulmonary consult DR Garcia has been consulted for lung evaluation. White count is 24,000 lactic acid of 6.8 all suggestive of sepsis. Past Med Surg Social Fam HX - Past Medical History Medical history: diabetes, hyperlipidemia, hypertension Psychiatric history: no psych history - Past Surgical History Surgical History: cholecystectomy, pacemaker - Social History Smoking Status: Former smoker Smokeless Tobacco Status: No Alcohol use: none Drug use: none Internal Medicine - H&P: Meds Aspirin 81 mg PO DAILY 04/04/15 [History] Losartan [Cozaar] 50 mg PO DAILY 04/04/15 [History] Simvastatin [Zocor] 20 mg PO HS 04/04/15 [History] Glimepiride [Amaryl] 4 mg PO DAILY 07/08/17 [History] 3 Allergy/AdvReac Type Severity Reaction Status Date / Time atorvastatin [From Lipitor] AdvReac Severe Shakiness Verified 07/08/17 08:26 All Systems PM: A 10-system review of systems was performed and is negative for pertinent findings except as documented above in the HPI. - Constitutional Constitutional: anorexia, fever(s) - EENT Eyes: no change in vision, no discharge, no pain, no photophobia Ears: no ear discharge, no ear pain, no tinnitus Nose, mouth and throat: no dysphagia, no nasal discharge, no neck pain, no sore throat - Cardiovascular Cardiovascular ROS IM: dyspnea on exertion - Respiratory Respiratory: cough, dyspnea, dyspnea on exertion - Gastrointestinal Gastrointestinal: no abdominal pain, no diarrhea, no hematemesis, no hematochezia, no melena, no nausea, no vomiting - Musculoskeletal Musculoskeletal ROS IM: no numbness, no tingling - Integumentary Integumentary IM: no rash, no unusual bruising - Neurological Neurological ROS: no confusion, no convulsions, no focal weakness, no numbness, no tingling, no tremor(s) - Constitutional Vitals: Temp Pulse Resp BP Pulse Ox 97.6 F 96 24 117/56 92 07/08/17 05:40 07/08/17 08:00 07/08/17 08:48 07/08/17 08:48 07/08/17 08:00 General appearance: Present: mild distress - Neck Neck exam general surgery: Present: supple, trachea midline. Absent: lymphadenopathy - Respiratory Respiratory exam: Present: decreased breath sounds, rhonchi, wheezes - Cardiovascular Cardiovascular exam: Present: RRR, +S1, +S2. Absent: diastolic murmur, gallop, rubs, systolic murmur - GI/Abdominal GI/Abdominal exam: Present: normal bowel sounds, soft, no peritoneal signs. Absent: distended, tenderness - Extremities Exam Extremities exam: Present: warm, radial pulses palpable and symmetrical. Absent : calf tenderness, cyanotic, pedal edema Internal Med - H&P Results - Labs CBC & Chem 7: 07/08/17 06:43 07/08/17 06:43
[2017-07-08] MEDS ORDERED: Naloxone 0.4 MG/ML INJ IVP PRN (09:14)
[2017-07-08] MEDS ORDERED: Acetaminophen 325 MG TABLET PO PRN (09:14)
[2017-07-08] MEDS ORDERED: Ondansetron 4 MG/2 ML VIAL IVP PRN (09:14)
[2017-07-08] MEDS ORDERED: *HR* Morphine 2 MG/ML SYRINGE IVP PRN (09:14)
[2017-07-08 10:19] LABS: INR 1.4; Prothrombin Time 14.7 Seconds (9.4-12.1)
[2017-07-08] MEDS ORDERED: *HR* Dextrose 50 % in Water (Syg) 50 ML SYRINGE IVP PRN (13:12)
[2017-07-08] MEDS ORDERED: Dextrose Gel 15 GM PO PRN ×2 (13:12)
[2017-07-08] MEDS ORDERED: D5% in Water 1,000 ML IVC PRN (13:12)
[2017-07-08] MEDS ORDERED: Insulin LISPRO 300 UNITS/3 ML VIAL SQ ONE (13:22)
[2017-07-08] MEDS: 0.9 % Sodium Chloride 1,000 ML IVC SCH ×2 (13:25→19:48)
[2017-07-08 14:46] LABS: Adenovirus Not Detected (Not Detect); Bordetella Pertussis Not Detected (Not Detect); Chlamydophila pneumoniae Not Detected (Not Detect); Coronavirus 229E Not Detected (Not Detect); Coronavirus HKU1 Not Detected (Not Detect); Coronavirus NL63 Not Detected (Not Detect); Coronavirus OC43 Not Detected (Not Detect); Human Metapneumovirus Not Detected (Not Detect); Human Rhinovirus/Enterovirus Not Detected (Not Detect); Influenza A Subtype 2009 H1 Not Detected (Not Detect); Influenza A Untypeable Not Detected (Not Detect); Influenza B Not Detected (Not Detect); Mycoplasma pneumoniae Not Detected (Not Detect); Parainfluenza Virus 1 Not Detected (Not Detect); Parainfluenza Virus 2 Not Detected (Not Detect); Parainfluenza Virus 3 Not Detected (Not Detect); Parainfluenza Virus 4 Not Detected (Not Detect); Respiratory Syncytial Virus Not Detected (Not Detect)
[2017-07-08] MEDS ORDERED: Piperacillin/Tazobactam 3.375 GM in D5% in Water (Mini-Bag+) 100 ML IVPB SCH (16:00)
[2017-07-08] MEDS: Insulin LISPRO 300 UNITS/3 ML VIAL SQ SCH ×2 (17:26→21:35)
--- NOTE | 2017-07-08 17:36 | Electrocardiograph Report ---
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
[2017-07-08 19:15] LABS: BUN/Creatinine Ratio 26 (6-26); Blood Urea Nitrogen 33 mg/dL (8-26); Calcium 8.4 mg/dL (8.6-10.8); Carbon Dioxide 17 mEq/L (19-29); Chloride 111 mEq/L (98-109); Glucose 230 mg/dL (70-99); Osmolality,Calculated 301 (280-300); Potassium 4.4 mEq/L (3.5-4.5); Sodium 138 mEq/L (136-145); eGFR For African Americans > 60 (> 60); eGFR For Non-African Americans 54 (> 60)
--- NOTE | 2017-07-08 19:17 | Anesthesia Evaluation PreOp ---
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, currently admitted for pneumonia) [facility]ER History: Denies Any Significant HX Other Medical History: Diabetes Type II Anesthesia History: No Prior Anesthetic Complications Alcohol Use: none Drug use: none Medications and Allergies Aspirin 81 mg PO DAILY 04/04/15 [History] Losartan [Cozaar] 50 mg PO DAILY 04/04/15 [History] Simvastatin [Zocor] 20 mg PO HS 04/04/15 [History] Glimepiride [Amaryl] 4 mg PO DAILY 07/08/17 [History] 3 Allergy/AdvReac Type Severity Reaction Status Date / Time atorvastatin [From Lipitor] AdvReac Severe Shakiness Verified 07/08/17 08:26 - Meds/Allergy Pre-op Review Medications Reviewed: Yes Allergies Reviewed: Yes Beta Blockers on Current Med List: No Anesthesia Results - Labs 07/08/17 06:43 07/08/17 06:43 - Imaging EKG: report reviewed (Atrial Ventricular Pacing) Additional studies: ECHO 2016 EF 55%, no pulm htn, no valvular dysfunction CT Scan Lung shows no mediastinal mass Anesthesia Exam O2 Sat Height 1.65 m Height 1.65 m Weight 62.256 kg Weight 58.967 kg O2 Sat by Pulse Oximetry 92 O2 Sat by Pulse Oximetry 97 O2 Sat by Pulse Oximetry 98 O2 Sat by Pulse Oximetry 98 O2 Sat by Pulse Oximetry 92 O2 Sat by Pulse Oximetry 97 O2 Sat by Pulse Oximetry 96 O2 Sat by Pulse Oximetry 96 O2 Sat by Pulse Oximetry 94 O2 Sat by Pulse Oximetry 87 Vital Signs Temp Pulse Resp BP Pulse Ox 97.6 F 98 20 159/82 87 07/08/17 05:40 07/08/17 05:40 07/08/17 05:40 07/08/17 05:40 07/08/17 05:40 Height: 5'5 Weight: 137 lbs NPO (# of Hours): MN Pain Scale: 0 - HEENT Pupil (Motor): Pupils equal, EOMI Mallampati: III Teeth: Edentulous Oral Opening: Less than or equal to 3 - [place]ER LOC: Oriented [place] Motor: Normal RUE, Normal LUE, Normal RLE, Normal LLE, Normal Face [place] [facility] Sensory: Normal: RUE, LUE, RLE, LLE, Face - Cardiac Rhythm: Irregular Murmur: None JVD: No Carotid Bruit: No - Pulmonary Breath Sounds: bilateral Clear Respiratory Effort: Symmetrical Anesthesia Assess/Plan ASA Score: 4 (HTN Arrhythmia requiring Pacemaker DM COPD) Modified Nicolle Scale for Level of Consciousness: Cooperative, oriented, and tranquil Anesthetic Plan: General Monitoring Plan: Standard Monitors Recovery Plan: PACU (Discussed GA, agrees to proceed)
[2017-07-08] MEDS: Ringers Solution, Lactated 1,000 ML IVC SCH (22:36)
[2017-07-09 01:06] LABS: Hematocrit 31.8 % (37.5-50.1); Mean Corpuscular HGB Conc 33.3 g/dL (31.6-35.5); Mean Corpuscular Hemoglobin 29.1 pg (28.0-33.3); Mean Corpuscular Volume 87.4 fL (83.0-100.0); Mean Platelet Volume 9.5 fL (9.4-12.4); Platelet Count 270 K/mcL (140-400); Red Blood Count 3.64 M/mcL (4.19-5.50); Red Cell Distribution Width 14.4 % (11.5-14.5)
[2017-07-09 01:08] LABS: Hemoglobin 10.6 g/dL (12.9-16.9)
[2017-07-09 01:24] LABS: Alanine Aminotransferase 16 Units/L (0-55); Albumin 2.7 g/dL (3.5-5.0); Albumin/Globulin Ratio 0.9 (1.1-2.2); Alkaline Phosphatase 83 Units/L (38-126); Aspartate Amino Transferase 27 Units/L (5-34); BUN/Creatinine Ratio 30 (6-26); Bilirubin,Total 0.3 mg/dL (0.2-1.2); Blood Urea Nitrogen 39 mg/dL (8-26); Calcium 8.4 mg/dL (8.6-10.8); Carbon Dioxide 19 mEq/L (19-29); Chloride 112 mEq/L (98-109); Chol/HDL Ratio 4.1 (0-4.9); Cholesterol 107 mg/dL (< 200); Globulin 3.1 g/dL (2.4-3.5); Glucose 237 mg/dL (70-99); HDL Cholesterol 26 mg/dL (40-59); LDL Cholesterol,Calculated 64 mg/dL (0-99); Magnesium 2.1 mg/dL (1.6-2.6); Osmolality,Calculated 305 (280-300); Potassium 4.6 mEq/L (3.5-4.5); Sodium 139 mEq/L (136-145); Total Protein 5.8 g/dL (6.0-8.3); Triglycerides 84 mg/dL (< 150); eGFR For African Americans > 60 (> 60); eGFR For Non-African Americans 52 (> 60)
[2017-07-09] MEDS: Azithromycin 500 MG in D5% in Water 250 ML IVPB SCH (05:38)
[2017-07-09] MEDS: *HR* Enoxaparin 30 MG/0.3 ML SYRINGE SQ SCH (05:39)
[2017-07-09] MEDS: Ringers Solution, Lactated 1,000 ML IVC SCH (05:39)
[2017-07-09] MEDS ORDERED: predniSONE 20 MG TABLET PO ONE (07:00)
[2017-07-09] MEDS: Insulin LISPRO 300 UNITS/3 ML VIAL SQ SCH ×4 (09:15→22:16)
[2017-07-09] MEDS: cefTRIAXone 1,000 MG in Water for inj. (sterile) 10 ML IVP SCH (09:16)
[2017-07-09] MEDS: Aspirin 81 MG TAB.CHEW PO SCH (09:17)
--- NOTE | 2017-07-09 09:18 | Pulmonology Progress Note ---
Date of Encounter: 07/09/17 Time of Encounter: 06:30 Assessment and Plan (1) Acute exacerbation of chronic obstructive airways disease Current Visit: Yes Status: Chronic Patient still has symptoms of COPD exacerbation to continue bronchodilators and steroids . (2) Community acquired pneumonia Current Visit: No Status: Acute Respiratory infection panel is negative to continue the current regimen of antibiotics getting better. Qualifiers: Laterality: unspecified laterality Qualified Code(s): J18.9 - Pneumonia, unspecified organism (3) Lung mass Current Visit: Yes Status: Chronic Patient has RUL mass which is stable treated with SBRT for non -small cell ca there is right sided hilar LN which most likely reactive vs metastatic since pneumonia is slowly resolving with COPD exacerbation with JANEL and sepsis will cancel EBUS as an inpatient i will see him 4-6 weeks as an outpatient will do repeat imaging at that time , spoke with patient he verbalized understanding. Subjective Principal diagnosis: Pneumonia with sepsis Interval history: Patient is doing lot better than yesterday still having some shortness of breadth . Objective PUL Vital signs: Last Vital Signs Temp 97.9 F 07/09/17 07:18 Pulse 79 07/09/17 07:18 Resp 16 07/09/17 07:18 BP 123/66 07/09/17 07:18 Pulse Ox 97 07/09/17 07:18 Auscultation: bilateral: wheezes Results - Laboratory Findings CBC and BMP: 07/09/17 00:42 07/09/17 00:42 PT/INR, D-dimer PT 14.7 Seconds (9.4-12.1) H 07/08/17 06:42 Abnormal lab findings: Abnormal lab results WBC 18.9 K/mcL (4.3-11.1) H 07/09/17 00:42 RBC 3.64 M/mcL (4.19-5.50) L 07/09/17 00:42 Hgb 10.6 g/dL (12.9-16.9) L D 07/09/17 00:42 Hct 31.8 % (37.5-50.1) L 07/09/17 00:42 Band Neutrophils % 14.0 % (0-4) H 07/08/17 06:43 Metamyelocytes % 4.0 % (0) H 07/08/17 06:43 Neutrophils # 19.8 K/mcL (1.6-8.9) H 07/08/17 06:43 Monocytes # 2.4 K/mcL (0.0-1.3) H 07/08/17 06:43 Clumped Platelets Few (Not Present) A 07/08/17 06:43 PT 14.7 Seconds (9.4-12.1) H 07/08/17 06:42 Potassium 4.6 mEq/L (3.5-4.5) H 07/09/17 00:42 Chloride 112 mEq/L (98-109) H 07/09/17 00:42 BUN 39 mg/dL (8-26) H 07/09/17 00:42 Creatinine 1.32 mg/dL (0.72-1.25) H 07/09/17 00:42 Est GFR (Non-Af Amer) 52 (> 60) L 07/09/17 00:42 BUN/Creatinine Ratio 30 (6-26) H 07/09/17 00:42 Glucose 237 mg/dL (70-99) H 07/09/17 00:42 POC Glucose 229 (58-89) H 07/08/17 21:10 Calculated Osmolality 305 (280-300) H 07/09/17 00:42 Lactic Acid 3.3 mmol/L (0.5-2.2) H 07/08/17 19:02 Calcium 8.4 mg/dL (8.6-10.8) L 07/09/17 00:42 Troponin I 0.22 ng/mL (0-0.03) H* 07/09/17 00:42 B-Natriuretic Peptide 454 pg/mL (0-100) H 07/09/17 00:42 Serum Total Protein 5.8 g/dL (6.0-8.3) L 07/09/17 00:42 Albumin 2.7 g/dL (3.5-5.0) L 07/09/17 00:42 Albumin/Globulin Ratio 0.9 (1.1-2.2) L 07/09/17 00:42 HDL Cholesterol 26 mg/dL (40-59) L 07/09/17 00:42 - Microbiology Findings Microbiology Findings: Microbiology, Last 48 Hours 07/08/17 21:36 Legionella Antigen - Final Urine,Clean Catch - Clinical Findings Intake & Output: Intake & Output 07/08/17 07/09/17 07/09/17 23:59 07:59 15:59 Intake Total 400 / 400 Output Total 450 / 450 150 / 150 Balance -50 / -50 -150 / -150 Weight 58.627 kg Consult Discharge Plan - Plan Referrals: Kev Mccloud Jr, MD [Primary Care Provider] -
--- NOTE | 2017-07-09 12:55 | Internal Med Progress Note ---
Date of Encounter: 07/09/17 Time of Encounter: 10:10 - Assessment and plan (1) Lung mass Current Visit: Yes Status: Chronic Assessment and plan: Patient with prior history of lung cancer. Chest CTA shows bilateral lower lobe ground glass infiltrate, may reflect pneumonia. New, mildly enlarged right hilar node may be reactive, however, recurrent metastatic disease cannot be excluded. There is no change in suprahilar right upper lobe mass, consistent with known prior malignancy. Patient was to have bronchoscopy today, it was held due to elevated troponin. Cardiology consultation is pending. Chest CTA 07/08/17 06:26 IMPRESSION: No evidence of pulmonary embolism. Bilateral lower lobe ground-glass infiltrate, worse on the left than the right, may reflect pneumonia. New, mildly enlarged right hilar lymph node may be reactive, related to acute infectious process. However, recurrent metastatic disease cannot be excluded. No significant change in suprahilar right upper lobe mass, consistent with known primary malignancy. D/ / 07/08/2017 08:11:17 Marcelino Mcneil MD / [facility] [place] Interpreting Provider: Marcelino Mcneil MD Chest X-Ray 07/08/17 17:17 IMPRESSION: Mild pulmonary vascular congestion. Mild atelectasis at the bilateral lung bases. D/ / Adarsh Servin MD / Adarsh Servin MD Interpreting Provider: Adarsh Servin MD (2) Sepsis Current Visit: Yes Status: Acute Assessment and plan: Is admitted with leukocytosis and elevated lactic acid. Both lactic acid and white count are trending down today. Patient has no tachycardia or tachypnea, or hypotension. Blood cultures are drawn and pending. Qualifiers: Sepsis type: sepsis due to unspecified organism Qualified Code(s): A41.9 - Sepsis, unspecified organism (3) Diabetes Current Visit: Yes Status: Chronic Assessment and plan: Prior A1c in July was 7.4. We will redraw in the morning. Continue sliding scale insulin, Accu-Cheks before meals at bedtime, diabetic and cardiac diet. Qualifiers: Diabetes mellitus type: type 2 Diabetes mellitus complication status: without complication Diabetes mellitus extermination supervisor insulin use: without penitentiary use Qualified Code(s): E11.9 - Type 2 diabetes mellitus without complications (4) Hypertension Current Visit: No Status: Chronic Qualifiers: Hypertension type: essential hypertension Qualified Code(s): I10 - Essential (primary) hypertension (5) Pneumonia Current Visit: Yes Status: Acute Assessment and plan: CAP. Pt being treated with Zithromax and Rocephin. Patient has leukocytosis that is resolving, 18.9 today. He has no fever or tachycardia. He denies home oxygen, although he is using supplemental oxygen here. Lungs are clear and diminished throughout. He denies new cough. Patient with lung mass, was to have bronchoscopy today, it is on hold due to cardiology consult pending. Chest CTA 07/08/17 06:26 IMPRESSION: No evidence of pulmonary embolism. Bilateral lower lobe ground-glass infiltrate, worse on the left than the right, may reflect pneumonia. New, mildly enlarged right hilar lymph node may be reactive, related to acute infectious process. However, recurrent metastatic disease cannot be excluded. No significant change in suprahilar right upper lobe mass, consistent with known primary malignancy. D/ / 07/08/2017 08:11:17 Marcelino Mcneil MD / [facility] [place] Interpreting Provider: Marcelino Mcneil MD Chest X-Ray 07/08/17 17:17 IMPRESSION: Mild pulmonary vascular congestion. Mild atelectasis at the bilateral lung bases. D/ / Adarsh Servin MD / Adarsh Servin MD Interpreting Provider: Adarsh Servin MD Qualifiers: Pneumonia type: due to unspecified organism Laterality: right Lung location: lower lobe of lung Qualified Code(s): J18.1 - Lobar pneumonia, unspecified organism (6) Poor nutrition Current Visit: Yes Status: Acute Assessment and plan: Nutrition has been consulted. Per family patient has had poor by mouth intake likely due to cancer. He reports that he has no appetite. (7) Elevated troponin Current Visit: Yes Status: Acute Assessment and plan: Patient with elevated troponin, 0.19, 0.22. Elevation in setting of sepsis, pneumonia, JANEL. Patient denies chest pain. Repeat EKG ordered. Cardiology consult. Bronchoscopy held pending cardiology consultation. (8) DVT prophylaxis Current Visit: No Status: Acute Assessment and plan: Lovenox subcutaneous daily. - Subjective Interval history: Patient was seen and assessed at 10:10 AM. Multiple family murmurs at bedside. Patient states that he feels better. Bronchoscopy has been prone hold due to elevated troponin. Patient is aware and his primary concern was getting a breakfast tray, which was ordered. Pt states that he has not been eating well at home recently, unsure why. He denies any pain currently and states that he is feeling some better, but is not ready for discharge yet. Patient is requiring 3 L of supplemental oxygen. He states that he does not wear any oxygen at home. - Constitutional Vitals: Temp Pulse Resp BP Pulse Ox 97.6 F 76 16 114/57 97 07/09/17 11:04 07/09/17 11:04 07/09/17 11:04 07/09/17 11:04 07/09/17 11:04 General appearance: Present: cachectic, mild distress, pleasant, no acute distress, answers questions appropriately - Head Head exam: Present: atraumatic, normal inspection, normocephalic - Eye Eye exam: Present: normal appearance, conjuntiva pink, sclera anicteric - Neck Neck exam general surgery: Present: normal inspection, supple, trachea midline. Absent: lymphadenopathy, tenderness - Respiratory Respiratory exam: Present: decreased breath sounds, CTAB. Absent: accessory muscle use, rales, respiratory distress, rhonchi, wheezes - Cardiovascular Cardiovascular exam: Present: RRR, +S1, +S2. Absent: diastolic murmur, gallop, rubs, systolic murmur - GI/Abdominal GI/Abdominal exam: Present: hepatomegaly, normal bowel sounds, soft, no peritoneal signs. Absent: distended, tenderness - Extremities Exam Extremities exam: Present: normal capillary refill, warm, radial pulses palpable and symmetrical. Absent: calf tenderness, cyanotic, pedal edema - Neurological Exam Neurological exam: Present: alert, oriented X3, no focal deficits. Absent: facial droop, speech deficit - Skin Skin exam: Present: dry, intact, normal color, warm. Absent: rash Internal Medicine: Result - Labs CBC & Chem 7: 07/09/17 00:42 07/09/17 00:42 Labs: Short CBC 07/09/17 Range/Units 00:42 WBC 18.9 H (4.3-11.1) K/mcL Hgb 10.6 L D (12.9-16.9) g/dL Hct 31.8 L (37.5-50.1) % Plt Count 270 (140-400) K/mcL BMP 07/08/17 07/09/17 18:35 00:42 Sodium 138 139 Potassium 4.4 4.6 H Chloride 111 H 112 H Carbon Dioxide 17 L 19 BUN 33 H 39 H Creatinine 1.27 H 1.32 H Glucose 230 H 237 H Calcium 8.4 L 8.4 L Cardiac Enzymes 07/08/17 07/09/17 Range/Units 18:35 00:42 Troponin I 0.19 H* 0.22 H* (0-0.03) ng/mL Liver Function 07/09/17 Range/Units 00:42 Total Bilirubin 0.3 (0.2-1.2) mg/dL AST 27 (5-34) Units/L ALT 16 (0-55) Units/L Alkaline Phosphatase 83 (38-126) Units/L Albumin 2.7 L (3.5-5.0) g/dL - ABG Interpretation ABG results: PT/INR, D-dimer PT 14.7 Seconds (9.4-12.1) H 07/08/17 06:42 - Impressions Impressions Chest X-Ray 07/08/17 17:17 IMPRESSION: Mild pulmonary vascular congestion. Mild atelectasis at the bilateral lung bases. D/ / Adarsh Servin MD / Adarsh Servin MD Interpreting Provider: Aadrsh Servin MD Consult Discharge Plan - Plan Referrals: Kev Mccloud Jr, MD [Primary Care Provider] -
[2017-07-09] MEDS: 0.9 % Sodium Chloride 1,000 ML IVC SCH (13:29)
[2017-07-10] MEDS: 0.9 % Sodium Chloride 1,000 ML IVC SCH (03:24)
[2017-07-10] MEDS: Azithromycin 500 MG in D5% in Water 250 ML IVPB SCH (05:14)
[2017-07-10] MEDS: *HR* Enoxaparin 30 MG/0.3 ML SYRINGE SQ SCH (05:14)
[2017-07-10 08:16] LABS: Basophils % 0.2 %; Eosinophils % 0.1 %; Hemoglobin 10.8 g/dL (12.9-16.9); Immature Granulocytes % 1.2 % (0-4); Lymphocytes # 1.7 K/mcL (0.6-4.6); Lymphocytes % 9.3 %; Mean Corpuscular HGB Conc 33.8 g/dL (31.6-35.5); Mean Corpuscular Hemoglobin 28.7 pg (28.0-33.3); Mean Corpuscular Volume 85.1 fL (83.0-100.0); Mean Platelet Volume 9.9 fL (9.4-12.4); Monocytes # 1.6 K/mcL (0.0-1.3); Monocytes % 9.1 %; Neutrophils # 14.5 K/mcL (1.6-8.9); Platelet Count 300 K/mcL (140-400); Red Blood Count 3.76 M/mcL (4.19-5.50); Red Cell Distribution Width 14.7 % (11.5-14.5); Segmented Neutrophils % 80.1 %
[2017-07-10 08:17] LABS: Carbon Dioxide 23 mEq/L (23-29); Chloride 111 mEq/L (98-107); Potassium 3.9 mEq/L (3.5-5.1); Sodium 137 mEq/L (136-145)
[2017-07-10 08:22] LABS: BUN/Creatinine Ratio 28 (6-26); Blood Urea Nitrogen 25 mg/dL (8-23); Glucose 261 mg/dL (70-105); Osmolality,Calculated 297 (280-300); eGFR For African Americans > 60 (> 60); eGFR For Non-African Americans > 60 (> 60)
[2017-07-10] MEDS: cefTRIAXone 1,000 MG in Water for inj. (sterile) 10 ML IVP SCH (09:06)
[2017-07-10] MEDS: Aspirin 81 MG TAB.CHEW PO SCH (09:07)
[2017-07-10] MEDS: Insulin LISPRO 300 UNITS/3 ML VIAL SQ SCH ×3 (09:09→17:23)
[2017-07-10 09:38] LABS: Hemoglobin A1C 7.3 %
--- NOTE | 2017-07-10 09:41 | Cardiology Consult Note ---
<Clarke Doyle - Last Filed: 07/10/17 14:33> Date of Encounter: 07/10/17 Time of Encounter: 09:00 Assessment and Plan (1) Elevated troponin Current Visit: Yes Status: Acute Initial troponin on presentation was 0.03; this increased to 0.19 and 0.21. Patient has a pacemaker. EKG demonstrated the following: Artifact limits interpretation; probably atrial and ventricular pacing. Last ECHO on 01/30/17 of the following: -Technically sub-optimal due to poor echocardiographic windows. Echo contrast was used. -Normal LV systolic function, LVEF 55%. -Atypical septal motion consistent with ventricular pacing. -Mild left ventricular diastolic dysfunction. -A device lead was visualized in the right atrium and right ventricle. BNP elevated; 364, 454 Repeat EKG has been ordered. Plan: -Continuous cardiac monitoring. -Patient may need cardiac catheterization. -Repeat ECHO (2) Hypertension Current Visit: Yes Status: Chronic Patient has a known history of hypertension; currently well-controlled. Plan: -Losartan 50 mg by mouth daily Qualifiers: Hypertension type: essential hypertension Qualified Code(s): I10 - Essential (primary) hypertension Discussion w patient/family: The assessment and plan as outlined above was discussed with the patient and/or family members who expressed understanding and agreement. All questions were answered. Thank you for involving us in the care of your patient. Please call with any questions. History of Present Illness Consult date: 07/10/17 Chief complaint: Shortness of breath History of present illness: Mr. Corado is a 86 year old male with PMH of COPD, RUL lung mass which was diagnosed in 2014 as non-small cell lung carcinoma; underwent SBRT with radiation changes in the upper lobe who presented to the hospital on 07/08/17 with a chief complaint of 3-4 days of flulike symptoms, SOB, and productive cough with sputum production. Patient reported feeling SOB at approximately 4 AM on the morning of presentation stating that he was unable to breathe. Patient is not normally on O2 and has no inhalers. Known history of emphysema and was a smoker 40 years ago. He denied having any fevers on presentation. CXR was performed; showed no acute process. CTA demonstrated bilateral lower lobe ground glass infiltrate worse on the left than the right, possibly reflecting pneumonia. Patient had an elevated white count on presentation and a lactic acid of 6.8, suggestive of sepsis. Patient was started on antibiotics for the treatment of sepsis, likely secondary to pneumonia. He was started on Zithromax 500 mg IV 24 hours and Rocephin 1000 mg IV daily. Pulmonology was consulted to evaluate recurrence of patient's lung cancer. Per pulmonology, patient's right upper lung mass size is the same, however, there is a concerning new hilar lymph node mostly in the infrahilar region concerning for the possibility of metastatic disease. A bronchoscopy was scheduled, but patient was noted to have an elevated troponin, so this was held off. Patient' s troponin level on presentation was normal at 0.03. However, his troponin increased to 0.19, then 0.22. Patient was seen and examined at bedside this morning. He reported feeling malaise and fatigue. Denied having any chest pain. Denied having any shortness of breath. No other complaints at this time. Past Med Surg Social Fam HX - Past Medical History Medical history: diabetes, hyperlipidemia, hypertension Psychiatric history: no psych history - Past Surgical History Surgical History: cholecystectomy, pacemaker - Social History Smoking Status: Former smoker Smokeless Tobacco Status: No Alcohol use: none Drug use: none Medications and Allergies Aspirin 81 mg PO DAILY 04/04/15 [History] Losartan [Cozaar] 50 mg PO DAILY 04/04/15 [History] Simvastatin [Zocor] 20 mg PO HS 04/04/15 [History] Glimepiride [Amaryl] 4 mg PO DAILY 07/08/17 [History] 3 Allergy/AdvReac Type Severity Reaction Status Date / Time atorvastatin [From Lipitor] AdvReac Severe Shakiness Verified 07/08/17 08:26 All Systems Review: A 10-system review of systems was performed and is negative for pertinent findings except as documented above in the HPI. - Constitutional Constitutional: lethargy, malaise, no chills, no fever(s), no frequent falls, no headache(s) - Cardiovascular Cardiovascular: no dyspnea at rest, no dyspnea on exertion, no irregular heart rhythm, no radiating jaw, neck or arm pain Physical Examination Vital Signs, Last 4 Hours Temp Pulse Resp BP Pulse Ox 07/10/17 09:12 96 07/10/17 08:02 97.3 F L 77 14 105/63 96 General: Conversant HEENT: Atraumatic, Normocephaly, Mucus Membranes Moist Neck: No JVD, Normal carotid pulses Cardiac: Reg Rate and Rhythm, Normal S1 and S2, No Murmur Neuro: Alert and responsive, No focal deficits noted Abdomen: Soft, Non-Tender Skin: No rashes noted on visualized skin Musculoskeletal: No Chest Wall Tenderness Extremities: No Clubbing, No Cyanosis, No Edema, Normal Pulses Results 07/10/17 07:54 07/10/17 07:54 Lab Results 07/10/17 07/10/17 07:54 07:54 WBC 18.1 H Hgb 10.8 L Hct 32.0 L Plt Count 300 Sodium 137 Potassium 3.9 Chloride 111 H Carbon Dioxide 23 BUN 25 H Creatinine 0.88 Glucose 261 H Calcium 8.0 L Consult Discharge Plan - Plan Referrals: Kev Mccloud Jr, MD [Primary Care Provider] - 07/18/17 10:00 am (Hospital follow up) <Haylee Cruz - Last Filed: 07/10/17 16:57> Date of Encounter: 07/10/17 - Attending Attestation I examined this patient and my medical decision-making was reviewed with the Resident Physician. I agree with the documented findings, disposition and treatment plan. Mr. Corado presented to the hospital with URI type symptoms, leukocytosis and elevated lactate. CTA demonstrated possible pneumonia - patient being treated with Abx. Also demonstrated was atherosclerosis of the coronaries and incidentally discovered were elevated troponins, now 0.22. The CTA additionally demonstrated a new enlarged hilar lymph node concerning given known RUL lung mass previously diagnosed as NSCLC. Pulmonary may consider bronchoscopy as outpatient but presently feel lymph node is reactive. The patient endorses general malaise but denies any recent chest pain. ECG paced with artifact - not able to interpret ischemic findings. At this time, recommend repeat troponin to follow downtrend. We will perform an echo for review of structure and function. Previously, LVEF was normal. If no significant change in LV function and if troponins decline, will anticipate sign off with outpatient follow up. This was discussed with the patient. He expressed understanding. All questions were answered. Assessment and Plan Discussion w patient/family: The assessment and plan as outlined above was discussed with the patient and/or family members who expressed understanding and agreement. All questions were answered. Thank you for involving us in the care of your patient. Please call with any questions. History of Present Illness History of present illness: Mr. Corado is a 86 year old male All Systems Review: A 10-system review of systems was performed and is negative for pertinent findings except as documented above in the HPI. Physical Examination Vital Signs, Last 4 Hours Temp Pulse Resp BP Pulse Ox 07/10/17 15:43 97.6 F 79 18 104/50 92 07/10/17 15:37 94 Results 07/10/17 07:54 07/10/17 07:54 Lab Results 07/10/17 07/10/17 07/10/17 07:54 07:54 16:05 WBC 18.1 H Hgb 10.8 L Hct 32.0 L Plt Count 300 Sodium 137 Potassium 3.9 Chloride 111 H Carbon Dioxide 23 BUN 25 H Creatinine 0.88 Glucose 261 H Calcium 8.0 L Troponin I 0.07 H*
--- NOTE | 2017-07-10 11:31 | Pulmonology Progress Note ---
Date of Encounter: 07/10/17 Time of Encounter: 11:30 Assessment and Plan (1) Acute exacerbation of chronic obstructive airways disease Current Visit: Yes Status: Chronic Patient still has symptoms of COPD exacerbation to continue bronchodilators and steroids . (2) Community acquired pneumonia Current Visit: No Status: Acute Respiratory infection panel is negative will change antibiotics to levaquin and he go home on levaquin and prolonged steroid taper for his COPD exacerbation. Qualifiers: Laterality: unspecified laterality Qualified Code(s): J18.9 - Pneumonia, unspecified organism (3) Lung mass Current Visit: Yes Status: Chronic Patient has RUL mass which is stable treated with SBRT for non -small cell ca there is right sided hilar LN which most likely reactive vs metastatic since pneumonia is slowly resolving with COPD exacerbation with JANEL and sepsis will cancel EBUS as an inpatient i will see him 4-6 weeks as an outpatient will do repeat imaging at that time , spoke with patient he verbalized understanding. Subjective Principal diagnosis: Pneumonia with sepsis Interval history: Patient is doing lot better than yesterday still having some shortness of breadth . Objective PUL Vital signs: Last Vital Signs Temp 97.3 F L 07/10/17 08:02 Pulse 77 07/10/17 08:02 Resp 14 07/10/17 08:02 BP 109/54 07/10/17 11:11 Pulse Ox 96 07/10/17 09:12 Auscultation: bilateral: wheezes Results - Laboratory Findings CBC and BMP: 07/10/17 07:54 07/10/17 07:54 PT/INR, D-dimer PT 14.7 Seconds (9.4-12.1) H 07/08/17 06:42 Abnormal lab findings: Abnormal lab results WBC 18.1 K/mcL (4.3-11.1) H 07/10/17 07:54 RBC 3.76 M/mcL (4.19-5.50) L 07/10/17 07:54 Hgb 10.8 g/dL (12.9-16.9) L 07/10/17 07:54 Hct 32.0 % (37.5-50.1) L 07/10/17 07:54 RDW 14.7 % (11.5-14.5) H 07/10/17 07:54 Band Neutrophils % 14.0 % (0-4) H 07/08/17 06:43 Metamyelocytes % 4.0 % (0) H 07/08/17 06:43 Neutrophils # 14.5 K/mcL (1.6-8.9) H 07/10/17 07:54 Monocytes # 1.6 K/mcL (0.0-1.3) H 07/10/17 07:54 Clumped Platelets Few (Not Present) A 07/08/17 06:43 PT 14.7 Seconds (9.4-12.1) H 07/08/17 06:42 Chloride 111 mEq/L (98-107) H 07/10/17 07:54 BUN 25 mg/dL (8-23) H 07/10/17 07:54 BUN/Creatinine Ratio 28 (6-26) H 07/10/17 07:54 Glucose 261 mg/dL (70-105) H 07/10/17 07:54 POC Glucose 342 (58-89) H 07/09/17 16:29 Hemoglobin A1c 7.3 % (-5.6) H 07/10/17 07:54 Lactic Acid 2.8 mmol/L (0.5-2.2) H 07/09/17 12:17 Calcium 8.0 mg/dL (8.6-10.3) L 07/10/17 07:54 Troponin I 0.22 ng/mL (0-0.03) H* 07/09/17 00:42 B-Natriuretic Peptide 454 pg/mL (0-100) H 07/09/17 00:42 Serum Total Protein 5.8 g/dL (6.0-8.3) L 07/09/17 00:42 Albumin 2.7 g/dL (3.5-5.0) L 07/09/17 00:42 Albumin/Globulin Ratio 0.9 (1.1-2.2) L 07/09/17 00:42 HDL Cholesterol 26 mg/dL (40-59) L 07/09/17 00:42 - Microbiology Findings Microbiology Findings: Microbiology, Last 48 Hours 07/08/17 21:36 Legionella Antigen - Final Urine,Clean Catch - Clinical Findings Intake & Output: Intake & Output 07/09/17 07/10/17 07/10/17 23:59 07:59 15:59 Intake Total 240 / 240 1250 / 1250 10 / 10 Output Total 200 / 200 675 / 675 100 / 100 Balance 40 / 40 575 / 575 -90 / -90 Weight 62.959 kg Consult Discharge Plan - Plan Referrals: Kev Mccloud Jr, MD [Primary Care Provider] - 07/18/17 10:00 am (Hospital follow up)
--- NOTE | 2017-07-10 12:35 | Discharge Summary ---
Date of Encounter: 07/10/17 Time of Encounter: 09:20 - Discharge Diagnosis (1) Lung mass Priority: Primary Status: Chronic Comments: Patient with right-sided hilar lymph node, most likely reactive versus metastatic disease. Patient has COPD exacerbation at this time, as well as JANEL , sepsis. Patient was seen by pulmonology, bronchoscopy will be held at this time and will follow-up in the office in 4-6 weeks for repeat imaging. (2) Sepsis Status: Acute Qualifiers: Sepsis type: sepsis due to unspecified organism Qualified Code(s): A41.9 - Sepsis, unspecified organism (3) Diabetes Status: Chronic Qualifiers: Diabetes mellitus type: type 2 Diabetes mellitus complication status: without complication Diabetes mellitus moth exterminator insulin use: without senior living use Qualified Code(s): E11.9 - Type 2 diabetes mellitus without complications (4) Hypertension Status: Chronic Qualifiers: Hypertension type: essential hypertension Qualified Code(s): I10 - Essential (primary) hypertension (5) Pneumonia Status: Acute Qualifiers: Pneumonia type: due to unspecified organism Laterality: right Lung location: lower lobe of lung Qualified Code(s): J18.1 - Lobar pneumonia, unspecified organism (6) Poor nutrition Status: Acute (7) Elevated troponin Status: Acute (8) DVT prophylaxis Status: Acute - Discharge Medications Home Medications: Aspirin 81 mg PO DAILY 04/04/15 [History] Losartan [Cozaar] 50 mg PO DAILY 04/04/15 [History] Simvastatin [Zocor] 20 mg PO HS 04/04/15 [History] Glimepiride [Amaryl] 4 mg PO DAILY 07/08/17 [History] Allergies/Adverse Reactions: 3 Allergy/AdvReac Type Severity Reaction Status Date / Time atorvastatin [From Lipitor] AdvReac Severe Shakiness Verified 07/08/17 08:26 Procedures/tests Complete & Pending: Procedures Performed prior 72 hours Category Date Time Status EKG [ECG 12 lead ECG] [ECG] Routine Y 07/09/17 13:16 Ordered EV limited echocardiogram Routine Y 07/09/17 12:44 Completed Date of admission: 07/08/17 09:36 Primary care physician: Kev Mccloud Jr, MD Consults: 07/08/17 11:11 Consult to Panel Instrument Repairer [CONS] Routine Reason for SW Consult: potential home health needs 07/08/17 11:48 Consult to Occupational Therapy [CONS] Routine Comment: Evaluate, develop and implement POC Reason for Consult: weakness Consult to Physical Therapy [CONS] Routine Comment: Evaluate, develop and implement POC Reason for Consult: weakness 07/09/17 12:37 Consult to Cardiology [CONS] Routine Comment: Consulting Provider: Eri Flowers Reason for Consult: elevated troponin. admitted for COPD, pt septic. Was to have bronch today, postponed for cards consult. Time Notified: 12:40 Call Completed: Yes Discharging clinician: Nisha Llanes Anticipated date of discharge: 07/10/17 - Patient Status Condition: Good - Discharge Instructions Follow Up With: Kev Mccloud Jr, MD [Primary Care Provider] - 07/18/17 10:00 am (Hospital follow up) Hospital course: Mr. Corado is a 86 year old male - Time Spent with Patient Total time spent providing and/or coordinating discharge services: - Constitutional Vitals: Temp Pulse Resp BP Pulse Ox 97.3 F L 77 14 109/54 96 07/10/17 08:02 07/10/17 08:02 07/10/17 08:02 07/10/17 11:11 07/10/17 09:12 General appearance: Present: cachectic, mild distress, pleasant, no acute distress, answers questions appropriately
--- NOTE | 2017-07-10 12:44 | Internal Med Progress Note ---
Date of Encounter: 07/10/17 Time of Encounter: 09:20 - Assessment and plan (1) Lung mass Current Visit: Yes Status: Chronic Assessment and plan: Patient with prior history of lung cancer. Chest CTA shows bilateral lower lobe ground glass infiltrate, may reflect pneumonia. New, mildly enlarged right hilar node may be reactive, however, recurrent metastatic disease cannot be excluded. There is no change in suprahilar right upper lobe mass, consistent with known prior malignancy. Patient was to have bronchoscopy while admitted, it was held due to elevated troponin, sepsis, and JANEL. Pt to have repeat imaging done in 4-6 weeks at office and outpt procedure. Chest CTA 07/08/17 06:26 IMPRESSION: No evidence of pulmonary embolism. Bilateral lower lobe ground-glass infiltrate, worse on the left than the right, may reflect pneumonia. New, mildly enlarged right hilar lymph node may be reactive, related to acute infectious process. However, recurrent metastatic disease cannot be excluded. No significant change in suprahilar right upper lobe mass, consistent with known primary malignancy. D/ / 07/08/2017 08:11:17 Marcelino Mcneil MD / [facility] Interpreting Provider: Marcelino Mcneil MD Chest X-Ray 07/08/17 17:17 IMPRESSION: Mild pulmonary vascular congestion. Mild atelectasis at the bilateral lung bases. D/ / Adarsh Servin MD / Adarsh Servin MD Interpreting Provider: Adarsh Servin MD (2) Sepsis Current Visit: Yes Status: Acute Assessment and plan: Is admitted with leukocytosis and elevated lactic acid. Both lactic acid and white count are trending down today. Patient has no tachycardia or tachypnea, or hypotension. Blood cultures are negative x 2. Pt is clinically stable and does not appear toxic. Qualifiers: Sepsis type: sepsis due to unspecified organism Qualified Code(s): A41.9 - Sepsis, unspecified organism (3) Diabetes Current Visit: Yes Status: Chronic Assessment and plan: A1c 7.3. Continue sliding scale insulin, Accu-Cheks before meals at bedtime, diabetic and cardiac diet. Qualifiers: Diabetes mellitus type: type 2 Diabetes mellitus complication status: without complication Diabetes mellitus half-way insulin use: without office rep use Qualified Code(s): E11.9 - Type 2 diabetes mellitus without complications (4) Hypertension Current Visit: Yes Status: Chronic Assessment and plan: Chronic. Continue home medications. Well controlled. Qualifiers: Hypertension type: essential hypertension Qualified Code(s): I10 - Essential (primary) hypertension (5) Pneumonia Current Visit: Yes Status: Acute Assessment and plan: CAP. Pt was treated with Zithromax and Rocephin, initially. Discussed increased wheezing and ronchi and slow decrease in leukocytosis with pulmonology, changed abx to Levaquin 750mg IV daily and have added Prednisone 40mg po daily. Patient has leukocytosis that is resolving, 18.1 today. He has no fever or tachycardia. He denies home oxygen, although he is using supplemental oxygen here, 3.5 liters. Will try to qualify for home 02. Lungs with wheezing and ronchi posteriorly. He denies new cough. Chest CTA 07/08/17 06:26 IMPRESSION: No evidence of pulmonary embolism. Bilateral lower lobe ground-glass infiltrate, worse on the left than the right, may reflect pneumonia. New, mildly enlarged right hilar lymph node may be reactive, related to acute infectious process. However, recurrent metastatic disease cannot be excluded. No significant change in suprahilar right upper lobe mass, consistent with known primary malignancy. D/ / 07/08/2017 08:11:17 Marcelino Mcneil MD / [facility] Interpreting Provider: Marcelino Mcneil MD Chest X-Ray 07/08/17 17:17 IMPRESSION: Mild pulmonary vascular congestion. Mild atelectasis at the bilateral lung bases. D/ / Adarsh Servin MD / Adarsh Servin MD Interpreting Provider: Adarsh Servin MD Qualifiers: Pneumonia type: due to unspecified organism Laterality: right Lung location: lower lobe of lung Qualified Code(s): J18.1 - Lobar pneumonia, unspecified organism (6) Poor nutrition Current Visit: Yes Status: Acute Assessment and plan: Nutrition has been consulted. Per family patient has had poor by mouth intake likely due to cancer. He reports that he has no appetite. (7) Elevated troponin Current Visit: Yes Status: Acute Assessment and plan: Patient with elevated troponin, 0.19, 0.22. Elevation in setting of sepsis, pneumonia, JANEL. Patient denies chest pain. Repeat EKG ordered. Cardiology consult completed, recommend continuing tele and possible LHC, pending physician review. Bronchoscopy held pending cardiology consultation. (8) DVT prophylaxis Current Visit: No Status: Acute Assessment and plan: Lovenox subcutaneous daily. - Time Spent With Patient less than 15 minutes - Subjective Interval history: Patient was seen and assessed at 0920 AM. Multiple family members at bedside. Patient states that he feels better. Patient had initially discussed discharge today, however due to leukocytosis that is really not improving, elevated troponins, cardiology consult suggested he may need of the LHC. Patient will stay for continued monitoring. She has still dependent on 3 and half liters of oxygen, although he has never worn oxygen at home prior to this. Rhonchi and wheezing heard throughout posterior lung rush. Patient was unable to complete his 6 minute walk due to bilateral knee pain. Patient states he wears knee braces at home, however they are not fixed at this time. He was unable to complete walk to qualify for oxygen at home. He denies headache, blurred vision , neck pain, nausea vomiting or diarrhea. No abdominal pain chest pain or shortness of breath. He reports intermittently productive cough. - Constitutional Vitals: Temp Pulse Resp BP Pulse Ox 97.3 F L 77 14 109/54 96 07/10/17 08:02 07/10/17 08:02 07/10/17 08:02 07/10/17 11:11 07/10/17 09:12 General appearance: Present: cachectic, mild distress, pleasant, no acute distress, answers questions appropriately - Head Head exam: Present: atraumatic, normal inspection, normocephalic - Eye Eye exam: Present: normal appearance, conjuntiva pink, sclera anicteric - Neck Neck exam general surgery: Present: supple, trachea midline. Absent: lymphadenopathy - Respiratory Respiratory exam: Present: CTAB, rhonchi, wheezes. Absent: accessory muscle use , chest wall tenderness, rales, respiratory distress - Cardiovascular Cardiovascular exam: Present: RRR, +S1, +S2. Absent: diastolic murmur, gallop, rubs, systolic murmur - GI/Abdominal GI/Abdominal exam: Present: normal bowel sounds, soft, no peritoneal signs. Absent: distended, hepatomegaly, tenderness - Extremities Exam Extremities exam: Present: warm, radial pulses palpable and symmetrical. Absent : calf tenderness, cyanotic, pedal edema, tenderness - Neurological Exam Neurological exam: Present: CN II-XII intact, oriented X3, no focal deficits. Absent: facial droop, speech deficit - Skin Skin exam: Present: dry, intact, normal color, warm. Absent: rash Internal Medicine: Result - Labs CBC & Chem 7: 07/10/17 07:54 07/10/17 07:54 Labs: Short CBC 07/10/17 Range/Units 07:54 WBC 18.1 H (4.3-11.1) K/mcL Hgb 10.8 L (12.9-16.9) g/dL Hct 32.0 L (37.5-50.1) % Plt Count 300 (140-400) K/mcL Neutrophils # 14.5 H (1.6-8.9) K/mcL BMP 07/10/17 07:54 Sodium 137 Potassium 3.9 Chloride 111 H Carbon Dioxide 23 BUN 25 H Creatinine 0.88 Glucose 261 H Calcium 8.0 L - ABG Interpretation ABG results: PT/INR, D-dimer PT 14.7 Seconds (9.4-12.1) H 07/08/17 06:42 - Impressions Impressions Echocardiogram Limited Views 07/09/17 12:44 Impressions: LVEF 55-60%. Normal LV chamber size, wall thickness and function. Atypical septal motion consistent with paced rhythm. Left Ventricular Wall Motion: Rest Echo Findings All wall segments showed normal motion. Findings: Study Quality * Technically adequate exam. ECG Findings * Paced rhythm. Left Ventricle * LVEF 55-60%. * Normal LV chamber size, wall thickness and function. * Atypical septal motion consistent with paced rhythm. Right Ventricle * Normal right ventricular structure and function. Device lead * A device lead was visualized in the right atrium and right ventricle. Consult Discharge Plan - Plan Referrals: Kev Mccloud Jr, MD [Primary Care Provider] - 07/18/17 10:00 am (Hospital follow up)
[2017-07-10] MEDS: predniSONE 20 MG TABLET PO SCH (13:16)
[2017-07-10] MEDS: Levofloxacin 750 MG/150 ML 750 MG/150 ML BAG IVPB SCH (13:16)
[2017-07-11] MEDS: Insulin LISPRO 300 UNITS/3 ML VIAL SQ SCH ×3 (00:11→12:15)
[2017-07-11 05:12] LABS: Basophils # 0.1 K/mcL (0.0-0.2); Basophils % 0.4 %; Hematocrit 34.8 % (37.5-50.1); Hemoglobin 11.8 g/dL (12.9-16.9); Immature Granulocytes % 2.2 % (0-4); Lymphocytes # 0.8 K/mcL (0.6-4.6); Lymphocytes % 6.4 %; Mean Corpuscular HGB Conc 33.9 g/dL (31.6-35.5); Mean Corpuscular Hemoglobin 29.6 pg (28.0-33.3); Mean Corpuscular Volume 87.2 fL (83.0-100.0); Mean Platelet Volume 10.1 fL (9.4-12.4); Monocytes # 0.4 K/mcL (0.0-1.3); Monocytes % 3.2 %; Neutrophils # 11.5 K/mcL (1.6-8.9); Platelet Count 329 K/mcL (140-400); Red Blood Count 3.99 M/mcL (4.19-5.50); Red Cell Distribution Width 14.8 % (11.5-14.5); Segmented Neutrophils % 87.8 %
[2017-07-11] MEDS: *HR* Enoxaparin 30 MG/0.3 ML SYRINGE SQ SCH (05:44)
[2017-07-11 05:47] LABS: BUN/Creatinine Ratio 23 (6-26); Blood Urea Nitrogen 24 mg/dL (8-23); Calcium 8.6 mg/dL (8.6-10.3); Carbon Dioxide 25 mEq/L (23-29); Chloride 108 mEq/L (98-107); Glucose 297 mg/dL (70-105); Osmolality,Calculated 307 (280-300); Potassium 5.4 mEq/L (3.5-5.1); Sodium 141 mEq/L (136-145); eGFR For African Americans > 60 (> 60); eGFR For Non-African Americans > 60 (> 60)
[2017-07-11] MEDS: Aspirin 81 MG TAB.CHEW PO SCH (07:27)
[2017-07-11] MEDS: predniSONE 20 MG TABLET PO SCH (07:27)
[2017-07-11] MEDS: Levofloxacin 750 MG/150 ML 750 MG/150 ML BAG IVPB SCH (07:27)
--- NOTE | 2017-07-11 08:03 | Event Note ---
Date of Encounter: 07/11/17 Time of Encounter: 08:01 - Cardiology Event Note Troponins downtrended--0.19, 0.22, 0.07. Limited echo EF preserved with normal wall motion. Cardiology is signing off. Will coordinate outpt follow-up.
[2017-07-11] MEDS ORDERED: 0.9 % Sodium Chloride 1,000 ML IVC SCH (08:15)
--- NOTE | 2017-07-11 11:06 | Pulmonology Progress Note ---
Date of Encounter: 07/11/17 Time of Encounter: 10:45 Assessment and Plan (1) Acute exacerbation of chronic obstructive airways disease Status: Chronic Symptoms are well controlled to finish the course of antibiotics and steroids and discharge. (2) Community acquired pneumonia Status: Acute To complete the course of levofloxacin and steroids Qualifiers: Laterality: unspecified laterality Qualified Code(s): J18.9 - Pneumonia, unspecified organism (3) Lung mass Status: Chronic Patient has RUL mass which is stable treated with SBRT for non -small cell ca there is right sided hilar LN which most likely reactive vs metastatic since pneumonia is slowly resolving with COPD exacerbation will see him 4-6 weeks as an outpatient . Subjective Principal diagnosis: Pneumonia with sepsis Interval history: Patient says he is doing lot better is back to baseline wants to go home today. Objective PUL Vital signs: Last Vital Signs Temp 97.6 F 07/11/17 07:00 Pulse 91 07/11/17 07:00 Resp 20 07/11/17 07:00 BP 145/77 07/11/17 07:00 Pulse Ox 96 07/11/17 09:40 Auscultation: bilateral: wheezes (mild scattered wheezes ) Results - Laboratory Findings CBC and BMP: 07/11/17 04:28 07/11/17 09:42 PT/INR, D-dimer PT 14.7 Seconds (9.4-12.1) H 07/08/17 06:42 Abnormal lab findings: Abnormal lab results WBC 13.1 K/mcL (4.3-11.1) H 07/11/17 04:28 RBC 3.99 M/mcL (4.19-5.50) L 07/11/17 04:28 Hgb 11.8 g/dL (12.9-16.9) L 07/11/17 04:28 Hct 34.8 % (37.5-50.1) L 07/11/17 04:28 RDW 14.8 % (11.5-14.5) H 07/11/17 04:28 Band Neutrophils % 14.0 % (0-4) H 07/08/17 06:43 Metamyelocytes % 4.0 % (0) H 07/08/17 06:43 Neutrophils # 11.5 K/mcL (1.6-8.9) H 07/11/17 04:28 Clumped Platelets Few (Not Present) A 07/08/17 06:43 PT 14.7 Seconds (9.4-12.1) H 07/08/17 06:42 Chloride 108 mEq/L (98-107) H 07/11/17 04:28 BUN 24 mg/dL (8-23) H 07/11/17 04:28 Glucose 297 mg/dL (70-105) H 07/11/17 04:28 POC Glucose 257 (58-89) H 07/10/17 16:33 Hemoglobin A1c 7.3 % (-5.6) H 07/10/17 07:54 Calculated Osmolality 307 (280-300) H 07/11/17 04:28 Lactic Acid 2.8 mmol/L (0.5-2.2) H 07/09/17 12:17 Troponin I 0.07 ng/mL (< 0.04) H* 07/10/17 16:05 B-Natriuretic Peptide 454 pg/mL (0-100) H 07/09/17 00:42 Serum Total Protein 5.8 g/dL (6.0-8.3) L 07/09/17 00:42 Albumin 2.7 g/dL (3.5-5.0) L 07/09/17 00:42 Albumin/Globulin Ratio 0.9 (1.1-2.2) L 07/09/17 00:42 HDL Cholesterol 26 mg/dL (40-59) L 07/09/17 00:42 - Clinical Findings Intake & Output: Intake & Output 07/10/17 07/11/17 07/11/17 23:59 07:59 15:59 Intake Total 140 / 140 Output Total 300 / 300 500 / 500 Balance -300 / -300 -500 / -500 140 / 140 Weight 63.095 kg Consult Discharge Plan - Plan Instructions: Chronic Obstructive Pulmonary Disease (DC), Sepsis (DC), Pneumonia (DC) Additional Instructions: Follow up with your primary care provider in the next 7-10 days for a recheck. Follow up with pulmonology in the next 4-6 weeks for recheck. Return to the emergency department as needed for any other problems or concerns. No prescriptions have been sent to your pharmacy. Return to your normal diet and activities as tolerated Referrals: Kev Mccloud Jr, MD [Primary Care Provider] - 07/18/17 10:00 am (Hospital follow up) Prescriptions: GuaiFENesin ER [Mucinex] 600 mg PO BID PRN #20 tbbp.12hr PRN Reason: Cough Levofloxacin [Levaquin] 750 mg PO DAILY #6 tablet predniSONE [PredniSONE] 10 mg PO DAILY #31 tablet
[2017-07-11 11:10] VITALS: BP 133/80
--- NOTE | 2017-07-11 12:41 | Discharge Summary ---
Date of Encounter: 07/11/17 Time of Encounter: 09:50 - Discharge Diagnosis (1) Lung mass Priority: Primary Status: Chronic Comments: Patient with prior history of lung cancer. Chest CTA shows bilateral lower lobe ground glass infiltrate, may reflect pneumonia. New, mildly enlarged right hilar node may be reactive, however, recurrent metastatic disease cannot be excluded. There is no change in suprahilar right upper lobe mass, consistent with known prior malignancy. Patient was to have bronchoscopy while admitted, it was held due to elevated troponin, sepsis, and JANEL. Pt to have repeat imaging done in 4-6 weeks at office and outpt procedure. Chest CTA 07/08/17 06:26 IMPRESSION: No evidence of pulmonary embolism. Bilateral lower lobe ground-glass infiltrate, worse on the left than the right, may reflect pneumonia. New, mildly enlarged right hilar lymph node may be reactive, related to acute infectious process. However, recurrent metastatic disease cannot be excluded. No significant change in suprahilar right upper lobe mass, consistent with known primary malignancy. D/ / 07/08/2017 08:11:17 Marcelino Mcneil MD / [facility] [email or web address] Interpreting Provider: Marcelino Mcneil MD Chest X-Ray 07/08/17 17:17 IMPRESSION: Mild pulmonary vascular congestion. Mild atelectasis at the bilateral lung bases. D/ / Adarsh Servin MD / Adarsh Servin MD Interpreting Provider: Adarsh Servin MD (2) Sepsis Priority: Primary Status: Resolved Comments: Leukocytosis is resolving, lactic acid has decreased to within normal limits. No tachycardia and no tachypnea, no hypotension. Blood cultures were negative 2 viral panel was negative. Patient is clinically stable and ready for discharge. Qualifiers: Sepsis type: sepsis due to unspecified organism Qualified Code(s): A41.9 - Sepsis, unspecified organism (3) Diabetes Priority: Secondary Status: Chronic Comments: A1c was 7.3. Continue home medications and Accu-Chek regimen per home schedule. Qualifiers: Diabetes mellitus type: type 2 Diabetes mellitus complication status: without complication Diabetes mellitus continuous churn buttermaker insulin use: without continuous churn buttermaker use Qualified Code(s): E11.9 - Type 2 diabetes mellitus without complications (4) Hypertension Priority: Secondary Status: Chronic Comments: Chronic. Continue home medications. Qualifiers: Hypertension type: essential hypertension Qualified Code(s): I10 - Essential (primary) hypertension (5) Pneumonia Priority: Secondary Status: Acute Comments: Patient is being treated for community-acquired pneumonia. Antibiotic was switched from Zithromax and Rocephin to Levaquin 750 mg IV daily. Patient's lungs are clear and diminished with expiratory wheezing in bilateral bases and rhonchi in anterior upper rush. Patient was started on prednisone by mouth daily, he will be sent home on an extended taper. Leukocytosis is improving. No fever no tachycardia. Patient has qualified for home O2 at 3 L. Continue by mouth steroids, antibiotic, and Mucinex at home. Qualifiers: Pneumonia type: due to unspecified organism Laterality: right Lung location: lower lobe of lung Qualified Code(s): J18.1 - Lobar pneumonia, unspecified organism (6) Poor nutrition Priority: Secondary Status: Chronic (7) Elevated troponin Priority: Secondary Status: Acute Comments: Patient with elevated troponin, 0.19, 0.22. Trended down to 0.07. Elevation in setting of sepsis, pneumonia, JANEL. Patient denies chest pain. Cardiology consult completed, patient had limited echo with preserved EF and normal wall motion. Cardiology has signed off. Bronchoscopy held pending cardiology consultation. (8) DVT prophylaxis Priority: Secondary Status: Acute Comments: Lovenox subcutaneous daily - Discharge Medications Prescriptions: GuaiFENesin ER [Mucinex] 600 mg PO BID PRN #20 tbbp.12hr PRN Reason: Cough Levofloxacin [Levaquin] 750 mg PO DAILY #6 tablet predniSONE [PredniSONE] 10 mg PO DAILY #31 tablet Home Medications: Aspirin 81 mg PO DAILY 04/04/15 [History] Losartan [Cozaar] 50 mg PO DAILY 04/04/15 [History] Simvastatin [Zocor] 20 mg PO HS 04/04/15 [History] Glimepiride [Amaryl] 4 mg PO DAILY 07/08/17 [History] GuaiFENesin ER [Mucinex] 600 mg PO BID PRN #20 tbbp.12hr 07/11/17 [Rx] Levofloxacin [Levaquin] 750 mg PO DAILY #6 tablet 07/11/17 [Rx] predniSONE [PredniSONE] 10 mg PO DAILY #31 tablet 07/11/17 [Rx] Allergies/Adverse Reactions: 3 Allergy/AdvReac Type Severity Reaction Status Date / Time atorvastatin [From Lipitor] AdvReac Severe Shakiness Verified 07/08/17 08:26 Procedures/tests Complete & Pending: Procedures Performed prior 72 hours Category Date Time Status EV limited echocardiogram Routine Y 07/09/17 12:44 Completed Date of admission: 07/08/17 09:36 Primary care physician: Kev Mccloud Jr, MD Consults: 07/08/17 11:11 Consult to Multi Skilled Operator [CONS] Routine Reason for SW Consult: potential home health needs 07/08/17 11:48 Consult to Occupational Therapy [CONS] Routine Comment: Evaluate, develop and implement POC Reason for Consult: weakness Consult to Physical Therapy [CONS] Routine Comment: Evaluate, develop and implement POC Reason for Consult: weakness 07/09/17 12:37 Consult to Cardiology [CONS] Routine Comment: Consulting Provider: Card[facility] [place] Reason for Consult: elevated troponin. admitted for COPD, pt septic. Was to have bronch today, postponed for cards consult. Time Notified: 12:40 Call Completed: Yes Discharging clinician: Nisha Llanes Anticipated date of discharge: 07/11/17 - Patient Status Disposition: Home, Self-Care Condition: Good Functional capacity at discharge: wheelchair bound Overall status at discharge: patient is progressing back to baseline - Discharge Instructions Follow Up With: Kev Mccloud Jr, MD [Primary Care Provider] - 07/18/17 10:00 am (Hospital follow up) Additional Instructions: Follow up with your primary care provider in the next 7-10 days for a recheck. Follow up with pulmonology in the next 4-6 weeks for recheck. Return to the emergency department as needed for any other problems or concerns. No prescriptions have been sent to your pharmacy. Return to your normal diet and activities as tolerated - Diet and Activity Activity: increase activity as tolerated Diet: advance to your usual diet Hospital course: Mr. Corado is a 86 year old male admitted to the hospital with shortness of breath, productive cough, decreased appetite. Patient was found to have lung mass, pneumonia, COPD exacerbation. Patient also had elevated troponin in the setting of AK I, sepsis, pneumonia. Troponin ended up trending down to 0.07 prior to discharge. Cardiology signed off. He was also evaluated by pulmonology, he will have outpatient imaging done in 4-6 weeks in the office. Patient was also treated for CPAP. He is sent home on Levaquin 750 mg by mouth daily, Mucinex, lengthy steroid taper. Patient qualified for home oxygen at 3 L. Initial length need was documented as 90 days. Patient states that he feels better, due to overall chronic deconditioning, patient was unable to complete 6 minute walk. He has declined home health at this time and states that his son and daughter are able to assist in his care. Leukocytosis is improving. AK I has resolved. Vital signs are stable and within normal limits. Patient is appropriate and stable for discharge. - Time Spent with Patient Total time spent providing and/or coordinating discharge services: Less than 30 minutes - Constitutional Vitals: Temp Pulse Resp BP Pulse Ox 97.7 F 80 18 133/80 98 07/11/17 11:04 07/11/17 11:04 07/11/17 11:04 07/11/17 11:04 07/11/17 11:04 General appearance: Present: cachectic, mild distress, pleasant, no acute distress, answers questions appropriately - Head Head exam: Present: atraumatic, normal inspection, normocephalic - Eye Eye exam: Present: normal appearance, conjuntiva pink, sclera anicteric - Neck Neck exam general surgery: Present: supple, trachea midline. Absent: lymphadenopathy - Respiratory Respiratory exam: Present: CTAB. Absent: accessory muscle use, rales, rhonchi, wheezes - Cardiovascular Cardiovascular exam: Present: RRR, +S1, +S2. Absent: diastolic murmur, gallop, rubs, systolic murmur - GI/Abdominal GI/Abdominal exam: Present: normal bowel sounds, soft. Absent: distended, tenderness - Extremities Exam Extremities exam: Present: warm, radial pulses palpable and symmetrical. Absent : calf tenderness, cyanotic, normal inspection, pedal edema - Neurological Exam Neurological exam: Present: alert, oriented X3, no focal deficits. Absent: facial droop, speech deficit - Skin Skin exam: Present: dry, intact, normal color, warm. Absent: rash
[2017-07-12 08:19] LABS: Mycoplasma pneumoniae IgG 0.06 U/L (<=0.09)
[2017-07-13] MEDS ORDERED: Levofloxacin 750 MG/150 ML 750 MG/150 ML BAG IVPB SCH (09:00)
== END 2017-07-11 16:36 | disposition home or self-care (01) | DRG 871 ==
LOC: EMEROO 05:37 → 3BNU 05:37
PROVIDERS: ADMIT Registered Nurse; ATTEND Registered Nurse

== ENCOUNTER 2020-03-26 13:10 | Observation (INO) ==
[2020-03-26 13:45] LABS: Hematocrit 38.2 % (37.5-50.1); Hemoglobin 12.5 g/dL (12.9-16.9); Mean Corpuscular HGB Conc 32.7 g/dL (31.6-35.5); Mean Corpuscular Hemoglobin 28.2 pg (28.0-33.3); Mean Corpuscular Volume 86.2 fL (83.0-100.0); Mean Platelet Volume 9.5 fL (9.4-12.4); Platelet Count 332 K/mcL (140-400); Red Blood Count 4.43 M/mcL (4.19-5.50); Red Cell Distribution Width 14.1 % (11.5-14.5); White Blood Count 9.4 K/mcL (4.3-11.1)
[2020-03-26 14:03] LABS: BUN/Creatinine Ratio 21 (6-26); Blood Urea Nitrogen 26 mg/dL (8-23); Calcium 9.4 mg/dL (8.6-10.3); Carbon Dioxide 25 mEq/L (23-29); Chloride 102 mEq/L (98-107); Glucose 180 mg/dL (70-105); Osmolality,Calculated 287 (280-300); Potassium 4.4 mEq/L (3.5-5.1); Sodium 134 mEq/L (136-145); eGFR For African Americans > 60 (> 60); eGFR For Non-African Americans 57 (> 60)
[2020-03-26 14:04] LABS: Troponin I < 0.03 ng/mL (< 0.04)
[2020-03-26 14:05] LABS: Bilirubin,Urine Negative (Negative); Blood,Urine Negative (Negative); Clarity,Urine Clear (Clear); Color,Urine Light-Yellow (Yellow); Glucose,Urine (UA) >=1000 mg/dL (Normal); Hyaline Casts,Urine Few per lpf (None Seen); Ketones,Urine Negative (Negative); Leukocyte Esterase,Urine Moderate (Negative); Mucus,Urine Few per lpf (None-Few); Nitrite,Urine Negative (Negative); PH,Urine 5.5 pH Units (5.0-8.0); Protein,Urine Trace mg/dL (Neg-Trace); Specific Gravity,Urine 1.017 (1.010-1.025); Urobilinogen,Urine Normal (Normal); WBC,Urine 15-30 per hpf (0-3)
[2020-03-26] MEDS ORDERED: Isovue-370 500 ML BOTTLE IVP ONE (15:11)
[2020-03-26] MEDS ORDERED: cephALEXin 500 MG CAPSULE PO SCH (15:15)
[2020-03-26] MEDS ORDERED: *HR* Dextrose 50 % in Water (Vial) 50 ML VIAL IVP PRN (16:04)
[2020-03-26] MEDS ORDERED: D5% in Water 1,000 ML IVC PRN (16:04)
[2020-03-26] MEDS ORDERED: Dextrose Gel 15 GM/37.5 ML TUBE PO PRN ×2 (16:04)
[2020-03-26] MEDS ORDERED: Naloxone 0.4 MG/ML INJ IVP PRN (16:04)
[2020-03-26] MEDS: Insulin LISPRO 300 UNITS/3 ML VIAL SQ SCH (17:27)
[2020-03-26] MEDS ORDERED: *HR* Heparin 5,000 UNIT/ML VIAL IVP ONE (17:27)
[2020-03-26] MEDS ORDERED: *HR* Heparin 5,000 UNIT/ML VIAL IVP PRN ×2 (17:27)
[2020-03-26] MEDS ORDERED: Heparin 25,000UNIT/250ML 1/2NS 25,000 UNIT/250 ML IV.SOLN IVC SCH (17:30)
[2020-03-26 18:01] LABS: Hematocrit 42.3 % (37.5-50.1); Hemoglobin 13.6 g/dL (12.9-16.9); Mean Corpuscular HGB Conc 32.2 g/dL (31.6-35.5); Mean Corpuscular Hemoglobin 28.2 pg (28.0-33.3); Mean Corpuscular Volume 87.6 fL (83.0-100.0); Mean Platelet Volume 9.7 fL (9.4-12.4); Platelet Count 336 K/mcL (140-400); Red Blood Count 4.83 M/mcL (4.19-5.50); Red Cell Distribution Width 14.3 % (11.5-14.5); White Blood Count 8.9 K/mcL (4.3-11.1)
[2020-03-26 18:16] LABS: Heparin anti-factor XA UFH < 0.04 IU/mL (0.30-0.70)
[2020-03-26 18:17] LABS: Prothrombin Time 11.5 Seconds (9.4-12.1)
[2020-03-26 18:19] LABS: Estimated Average Glucose 169 mg/dl
[2020-03-26 18:21] LABS: Albumin 4.2 g/dL (3.5-5.7); Albumin/Globulin Ratio 1.2 (1.1-2.2); Bilirubin,Direct 0.1 mg/dL (0.0-0.2); Bilirubin,Indirect 0.4 mg/dL (0.0-1.0); Bilirubin,Total 0.5 mg/dL (0.3-1.0); Globulin 3.4 g/dL (2.4-3.5); Phosphorous 2.8 mg/dL (2.7-4.5); Total Protein 7.6 g/dL (6.4-8.9)
[2020-03-26] MEDS ORDERED: 0.9 % Sodium Chloride 1,000 ML IVC SCH (20:45)
[2020-03-26] MEDS ORDERED: Insulin LISPRO 300 UNITS/3 ML VIAL SQ SCH (21:00)
[2020-03-26] MEDS ORDERED: *HR* Heparin 5,000 UNIT/ML VIAL SQ SCH (22:00)
[2020-03-27 01:51] LABS: Basophils # 0.1 K/mcL (0.0-0.2); Basophils % 0.6 %; Eosinophils # 0.1 K/mcL (0.0-0.6); Eosinophils % 1.3 %; Hematocrit 33.5 % (37.5-50.1); Immature Granulocytes % 0.9 % (0-4); Lymphocytes # 1.4 K/mcL (0.6-4.6); Lymphocytes % 17.8 %; Mean Corpuscular HGB Conc 33.1 g/dL (31.6-35.5); Mean Corpuscular Hemoglobin 29.2 pg (28.0-33.3); Mean Corpuscular Volume 88.2 fL (83.0-100.0); Mean Platelet Volume 9.6 fL (9.4-12.4); Monocytes # 0.8 K/mcL (0.0-1.3); Monocytes % 10.2 %; Neutrophils # 5.5 K/mcL (1.6-8.9); Platelet Count 289 K/mcL (140-400); Red Cell Distribution Width 14.4 % (11.5-14.5); Segmented Neutrophils % 69.2 %; White Blood Count 7.9 K/mcL (4.3-11.1)
[2020-03-27 01:52] LABS: Hemoglobin 11.1 g/dL (12.9-16.9)
[2020-03-27 02:04] LABS: BUN/Creatinine Ratio 20 (6-26); Blood Urea Nitrogen 26 mg/dL (8-23); Calcium 8.6 mg/dL (8.6-10.3); Carbon Dioxide 25 mEq/L (23-29); Chloride 107 mEq/L (98-107); Glucose 290 mg/dL (70-105); Osmolality,Calculated 295 (280-300); Potassium 4.5 mEq/L (3.5-5.1); Sodium 135 mEq/L (136-145); eGFR For African Americans > 60 (> 60); eGFR For Non-African Americans 52 (> 60)
[2020-03-27] MEDS: Insulin LISPRO 300 UNITS/3 ML VIAL SQ SCH ×2 (08:53→12:08)
[2020-03-27] MEDS ORDERED: 0.9 % Sodium Chloride 500 ML IVC ONE (12:46)
[2020-03-27 15:15] VITALS: BP 135/82
== END 2020-03-27 16:24 | disposition home or self-care (01) ==
LOC: 3BNU 13:10 → EMEROOARM 13:10 → SUATTDRO 15:18 → 3BNU 15:41
PROVIDERS: ADMIT Internal Medicine; ATTEND Internal Medicine